=== PATIENT | male | born 1950 | race Caucasian/White ===

== ENCOUNTER 2018-04-09 18:59 | Inpatient (IN) ==
[2018-04-09] MEDS ORDERED: Artificial Tears SOLN 15 ML BOTTLE BOTH EYES PRN (20:51)
[2018-04-09] MEDS ORDERED: Dextrose Gel 15 GM/37.5 ML TUBE PO PRN ×2 (21:03)
[2018-04-09] MEDS ORDERED: D5% in Water 1,000 ML IVC PRN (21:03)
[2018-04-09] MEDS ORDERED: *HR* Dextrose 50 % in Water (Syg) 50 ML SYRINGE IVP PRN (21:03)
--- NOTE | 2018-04-09 21:25 | Internal Med History&Physical ---
<Michael Diaz - Last Filed: 04/09/18 21:02> Date of Encounter: 04/09/18 Time of Encounter: 21:02 Internal Medicine - H&P: HPI Chief complaint: Altered mental status Admitted From: Hospital to Hospital Transfer Plans for Post Hospital Care: [facility] History of present illness: Mr. Keller is a 67 year old male is a transfer from [facility] emergency department presented with altered mental status. During my evaluation patient is intubated, not sedated but not responsive to verbal, painful stimuli. Try to contact patient's daughter whose emergency contact but no recent response. [facility]. As per ambulance records patient glucose was 159, patient was Narcan and with 2 mg, O2 saturation was 96% on nonrebreather mask at 15 L/m. Blood pressure was 84/50 and temperature was 101. He was given 250 mL of normal saline by EMS. At [facility] he was noted to have ratally respirations, was not responsive. He was found to be in severe sepsis secondary to pneumonia. CT shows showed right lower lobe consolidation and patchy airspace opacities in the right upper lobe. CT head was negative for acute intracranial abnormalities. Patient was given 4 L total of normal saline. Patient's initial blood gas was pH 7.46, PCO2 27, PO2 81.After intubation patient's blood gas was pH 7.41, PCO2 29, PO2 80. Patient has not required sedation. His WBC was 16.8. Sodium was 149, serum creatinine 2.27, lactic acid 3.5. Called [facility]. Patient's nurse reports that he has been in the nursing center since the beginning of January. His baseline mental status is Patient groans. He is wholly dependent on others for all of his daily activities. 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 Nurse reports that patient has mentally declined and was followed by neurology which obtain MRI and heavy metal testing. Heavy metal testing was negative. MRI 02/15 showed diffuse white matter disorder throughout the centrum semiovalevalley particular involvement of the medial right temporal lobe. There is concern for PML and patient was tested for HIV which was negative. Past Med Surg Social Fam HX - Past Medical History Medical history: dementia, hypertension, seizures, other (Leukoencephalopathy, lumbar stenosis) Additional medical history: Weight loss unexplained. Dementia. BPH. Periventricular Leukoencephalopathy Psychiatric history: no psych history - Past Surgical History Surgical History: no surgical history Additional surgical history: Hypokalemia, azotemia,vitamin deficiency, multiple falls, weight loss - Social History Smoking Status: Former smoker Smokeless Tobacco Status: No Alcohol use: none Drug use: none - Additional Family History Additional family history: Family history not able to be obtained due to patient being unresponsive. Internal Medicine - H&P: Meds Cyanocobalamin (B-12) [Vitamin B12] 1,000 mcg PO DAILY tablet 01/24/18 [Rx] Meclizine HCl [Verticalm] 25 mg PO DAILY 03/18/18 [History] Tamsulosin HCl [Flomax] 0.4 mg PO DAILY 03/18/18 [History] Docusate [Colace] 100 mg PO BID 04/09/18 [History] HYDROcodone/Acet 5/325 mg [[place] 5-325 mg] 1 tab PO Q8H PRN 04/09/18 [History] Lisinopril-HCTZ 10-12.5 [Prinzide 10-12.5] 1 each PO DAILY 04/09/18 [History] 3 Allergy/AdvReac Type Severity Reaction Status Date / Time No Known Allergies Allergy Verified 01/24/18 21:03 ROS unobtainable: due to mental status All Systems PM: A 10-system review of systems was performed and is negative for pertinent findings except as documented above in the HPI. - Constitutional Vitals: Resp BP Pulse Ox 27 127/70 99 04/09/18 20:53 04/09/18 20:53 04/09/18 20:53 Exam: General: Intubated, unresponsive HEENT: Head atraumatic, normocephalic, PERRL, absent ear discharge or trauma, Moist Mucous Membranes, intubated Neck: nontender to palpation, absent lymphadenopathy, Cardiovascualr: Sinus tachycardia, without murmur, absent gallops or rubs, absent pedal edema, radial pulses 2 out of 4 Lungs: Clear to auscultation on the left lobe, rhonchorous right lower lobe, intubated, breathing over the vent Abdomen: Soft nontender, nondistended positive bowel sounds, absent hepatomegaly Skin: Stage I ulcer, coccyx absent rash, absent open wounds and nodules MSK: absent clubbing, cyanosis, joints without swelling Neuro: Gag reflex present. Pupils round and reactive to light bilaterally. Psych: Intubated, unresponsive - Assessment and plan (1) Acute respiratory failure with hypoxia Current Visit: Yes Status: Acute Assessment and plan: Secondary to pneumonia, bacterial Patient is intubated ABG pH is 7.41, PCO2 29, PO2 80 at [facility] ED Patient is not requiring sedation. Patient is breathing over the ventilator. CT chest showed right upper lobe and right lower lobe opacity medication. We will start patient on DuoNeb's, repeat ABG (2) Sepsis Current Visit: Yes Status: Acute Assessment and plan: Patient was tachycardic, tachypneic, febrile, leukocytosis Neck secondary to pneumonia Lactic acid 3.5 Patient history of total 4 L normal saline. Pressure is 127/70 on arrival to [facility] Blood cultures collected, collect sputum culture On vancomycin, Zosyn Repeat CBC, lactic acid d Qualifiers: Sepsis type: sepsis due to unspecified organism Qualified Code(s): A41.9 - Sepsis, unspecified organism (3) Pneumonia Current Visit: Yes Status: Acute Assessment and plan: Bacterial pneumonia Patient has history of seizures as per records from [facility] unclear if she is on an antiepileptic medication. He was found unresponsive at the nursing facility. There is possibility of aspiration pneumonia. We will obtain sputum culture, urine Legionella and streptococcal antigen. Blood cultures obtained repeat cxr in am Vanc and zosyn Qualifiers: Pneumonia type: due to unspecified organism Laterality: right Lung location: lower lobe of lung Qualified Code(s): J18.1 - Lobar pneumonia, unspecified organism (4) Acute kidney injury Current Visit: Yes Status: Acute Assessment and plan: Secondary to sepsis Prerenal Baseline patient of CKD3 Patient has received 4 L normal saline We will repeat BMP Avoid nephrotoxic agents. (5) History of alcohol use Current Visit: Yes Status: Acute Assessment and plan: According to EMS patient has a history of alcohol abuse however he has been a nursing facility since the beginning of January and all his activities are dependent on others Not suspecting alcohol encephalopathy. (6) History of seizures Current Visit: Yes Status: Acute Assessment and plan: Patient has a history of seizures, unclear type of seizures He is not on any antiepileptics Continue to monitor. (7) History of hypertension Current Visit: Yes Status: Acute Assessment and plan: Currently we will hold patient's home blood pressure medications as he is septic to prevent hypotension. (8) Encephalopathy Current Visit: Yes Status: Acute Assessment and plan: Combination of metabolic encephalopathy in conjunction with baseline leukoencephalopathy Patient's baseline mental status is reported to be patient groans and is totally dependent on others Currently he is unresponsive and not needing sedation Contacted patient's daughter without success. We will obtain an ammonia level UDS - Time Spent With Patient Total time spent is greater than 50% in coordination of care (as documented) at patient's floor/unit and/or counseling patient: <Stormy Guzman - Last Filed: 04/09/18 22:49> Date of Encounter: 04/09/18 Internal Medicine - H&P: HPI History of present illness: Mr. Keller is a 67 year old male All Systems PM: A 10-system review of systems was performed and is negative for pertinent findings except as documented above in the HPI. - Constitutional Vitals: Temp Pulse Resp BP Pulse Ox 100.8 F H 103 27 111/70 100 04/09/18 21:57 04/09/18 21:57 04/09/18 21:57 04/09/18 21:57 04/09/18 21:57 Internal Med - H&P Results - Labs CBC & Chem 7: 04/09/18 21:32 04/09/18 21:32 Labs: Short CBC 04/09/18 Range/Units 21:32 WBC 11.3 H (4.3-11.1) K/mcL Hgb 13.7 (12.9-16.9) g/dL Hct 44.6 (37.5-50.1) % Plt Count 256 (140-400) K/mcL Neutrophils # 9.8 H (1.6-8.9) K/mcL BMP 04/09/18 21:32 Sodium 148 H Potassium 4.0 Chloride 119 H Carbon Dioxide 17 L BUN 84 H Creatinine 2.10 H Glucose 114 H Calcium 9.1 Liver Function 04/09/18 Range/Units 21:32 Total Bilirubin 0.8 (0.3-1.0) mg/dL Direct Bilirubin 0.2 (0.0-0.2) mg/dL AST 29 (13-39) Units/L ALT 15 (7-52) Units/L Alkaline Phosphatase 53 (34-104) Units/L Albumin 3.6 (3.5-5.7) g/dL - ABG Interpretation ABG results: 04/09/18 22:04 ABG pH 7.43 ABG pCO2 26 L ABG pO2 80 L ABG HCO3 17 L ABG Total CO2 18 L ABG O2 Saturation 96 ABG Base Excess -6 L - Time Spent With Patient Total time spent is greater than 50% in coordination of care (as documented) at patient's floor/unit and/or counseling patient: - Attending Attestation Patient seen and examined. Chart reviewed. Case discussed with resident. Agree with assessment and plan. In short patient is a 67-year-old male who was initially taken to [facility] after the patient was found to be febrile and hypotensive at [facility]. Laboratory workup and imaging consistent with high suspicion for pneumonia complicated by severe sepsis. Patient was intubated prior to transfer for airway protection in the setting of altered mental status and being poorly responsive. At baseline patient has been for the last several weeks nonverbal, wheelchair-bound and completely dependent on ADLs. 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 Past MRI showing abnormal white matter disease. Patient was evaluated by neurology, placed on Seroquel with decline in mental state. Has been taken off Seroquel since then. We will treat for severe sepsis secondary to pneumonia. 30 minutes of critical care time was spent in the management of this patient.
[2018-04-09] MEDS: Chlorhexidine Rinse 15 ML MOUTHWASH MM SCH (21:30)
[2018-04-09] MEDS: *HR* Heparin 5,000 UNIT/ML VIAL SQ SCH (21:30)
[2018-04-09] MEDS ORDERED: Naloxone 0.4 MG/ML INJ IVP PRN (21:49)
[2018-04-09 21:59] LABS: Basophils % 0.2 %; Hematocrit 44.6 % (37.5-50.1); Hemoglobin 13.7 g/dL (12.9-16.9); Immature Granulocytes % 0.3 % (0-4); Lymphocytes # 0.9 K/mcL (0.6-4.6); Lymphocytes % 8.2 %; Mean Corpuscular HGB Conc 30.7 g/dL (31.6-35.5); Mean Corpuscular Hemoglobin 29.4 pg (28.0-33.3); Mean Corpuscular Volume 95.7 fL (83.0-100.0); Mean Platelet Volume 9.9 fL (9.4-12.4); Monocytes # 0.5 K/mcL (0.0-1.3); Monocytes % 4.8 %; Neutrophils # 9.8 K/mcL (1.6-8.9); Platelet Count 256 K/mcL (140-400); Red Blood Count 4.66 M/mcL (4.19-5.50); Red Cell Distribution Width 14.2 % (11.5-14.5); Segmented Neutrophils % 86.5 %
[2018-04-09 22:09] LABS: ABG Base Excess -6 mEq/L (-2 to 3); ABG HCO3 17 mEq/L (21-27); ABG Oxygen Saturation 96 % (95-98); ABG PCO2 26 mmHg (35-45); ABG PH 7.43 pH Units (7.32-7.45); ABG PO2 80 mmHg (85-104); ABG TCO2 18 mEq/L (20-26); Blood Gas Modality ASSIST CONTROL; Blood Gas PEEP 5 cm H2O; Blood Gas Respiration Rate 18; Blood Gas VT 450 cc
[2018-04-09 22:09] LABS: Albumin 3.6 g/dL (3.5-5.7); Albumin/Globulin Ratio 1.4 (1.1-2.2); Bilirubin,Direct 0.2 mg/dL (0.0-0.2); Bilirubin,Indirect 0.6 mg/dL (0.0-1.2); Bilirubin,Total 0.8 mg/dL (0.3-1.0); Calcium 9.1 mg/dL (8.6-10.3); Globulin 2.5 g/dL (2.4-3.5); Magnesium 2.3 mg/dL (1.6-2.6); Phosphorous 3.7 mg/dL (2.7-4.5); Total Protein 6.1 g/dL (6.4-8.9)
[2018-04-09 22:18] LABS: VBG Ionized Calcium 1.18 mmol/L (1.15-1.35)
[2018-04-09 22:22] LABS: Platelet Estimate Normal (Normal)
[2018-04-09 22:47] LABS: Amphetamine Screen,Urine Negative ng/mL (Cutoff=1000); Barbiturate Screen,Urine Negative ng/mL (Cutoff=200); Benzodiazepines Screen,Urine Negative ng/mL (Cutoff=200); Cannabinoid Screen,Urine Negative ng/mL (Cutoff = 50); Cocaine Screen,Urine Negative ng/mL (Cutoff= 300); Opiate Screen,Urine Positive ng/mL (Cutoff=300); Phencyclidine Screen,Urine Negative ng/mL (Cutoff=25)
[2018-04-09] MEDS: FentaNYL (PF) 1,000 MCG in 0.9 % Sodium Chloride 80 ML IVC SCH (23:07)
[2018-04-09] MEDS: Artificial Tears SOLN 15 ML BOTTLE BOTH EYES SCH (23:10)
[2018-04-09] MEDS: Piperacillin/Tazobactam 3.375 GM in 0.9 % Sodium Chloride Mini Bag 100 ML IVPB SCH (23:23)
[2018-04-10 01:08] LABS: ABG Base Excess -7 mEq/L (-2 to 3); ABG HCO3 16 mEq/L (21-27); ABG Oxygen Saturation 97 % (95-98); ABG PCO2 24 mmHg (35-45); ABG PH 7.43 pH Units (7.32-7.45); ABG PO2 84 mmHg (85-104); ABG TCO2 17 mEq/L (20-26); Blood Gas Modality ASSIST CONTROL; Blood Gas PEEP 5 cm H2O; Blood Gas Respiration Rate 18; Blood Gas VT 450 cc
[2018-04-10] MEDS ORDERED: Ringers Solution, Lactated 1,000 ML IVC SCH (02:00)
[2018-04-10 02:05] LABS: Hematocrit 38.2 % (37.5-50.1); Mean Corpuscular HGB Conc 30.6 g/dL (31.6-35.5); Mean Corpuscular Hemoglobin 29.7 pg (28.0-33.3); Mean Platelet Volume 9.8 fL (9.4-12.4); Platelet Count 236 K/mcL (140-400); Red Blood Count 3.94 M/mcL (4.19-5.50); Red Cell Distribution Width 14.2 % (11.5-14.5)
[2018-04-10 02:13] LABS: Hemoglobin 11.7 g/dL (12.9-16.9)
[2018-04-10 02:24] LABS: Lymphocytes # 1.6 K/mcL (0.6-4.6); Monocytes # 0.2 K/mcL (0.0-1.3); Neutrophils # 8.8 K/mcL (1.6-8.9)
[2018-04-10 02:25] LABS: Albumin 3.1 g/dL (3.5-5.7); Albumin/Globulin Ratio 1.3 (1.1-2.2); Bilirubin,Total 0.6 mg/dL (0.3-1.0); Calcium 8.7 mg/dL (8.6-10.3); Globulin 2.3 g/dL (2.4-3.5); Platelet Estimate Normal (Normal); Potassium 3.9 mEq/L (3.5-5.1); Total Protein 5.4 g/dL (6.4-8.9)
[2018-04-10] MEDS: Artificial Tears SOLN 15 ML BOTTLE BOTH EYES SCH ×6 (03:01→23:14)
[2018-04-10 04:43] LABS: ABG Base Excess -5 mEq/L (-2 to 3); ABG HCO3 19 mEq/L (21-27); ABG Oxygen Saturation 96 % (95-98); ABG PCO2 31 mmHg (35-45); ABG PO2 79 mmHg (85-104); ABG TCO2 20 mEq/L (20-26); Blood Gas Modality ASSIST CONTROL; Blood Gas PEEP 5 cm H2O; Blood Gas Respiration Rate 18; Blood Gas VT 450 cc
[2018-04-10] MEDS: *HR* Heparin 5,000 UNIT/ML VIAL SQ SCH ×3 (05:09→20:43)
[2018-04-10] MEDS: Famotidine 20 MG/2 ML VIAL IVP SCH ×2 (05:09→17:10)
[2018-04-10] MEDS: FentaNYL (PF) 1,000 MCG in 0.9 % Sodium Chloride 80 ML IVC SCH ×2 (06:08→17:01)
[2018-04-10 07:42] LABS: ABG Base Excess -4 mEq/L (-2 to 3); ABG HCO3 20 mEq/L (21-27); ABG Oxygen Saturation 96 % (95-98); ABG PCO2 32 mmHg (35-45); ABG PO2 77 mmHg (85-104); ABG TCO2 21 mEq/L (20-26); Blood Gas PEEP 5 cm H2O; Blood Gas Respiration Rate 12; Blood Gas VT 550 cc
[2018-04-10] MEDS: Piperacillin/Tazobactam 3.375 GM in 0.9 % Sodium Chloride Mini Bag 100 ML IVPB SCH ×3 (09:04→23:13)
[2018-04-10] MEDS: Chlorhexidine Rinse 15 ML MOUTHWASH MM SCH ×2 (09:10→20:43)
[2018-04-10] MEDS: Docusate Oral Soln 100 MG/10 ML UDC GTUBE SCH ×2 (10:19→20:43)
[2018-04-10 10:21] LABS: Adenovirus Not Detected (Not Detect); Bordetella Pertussis Not Detected (Not Detect); Chlamydophila pneumoniae Not Detected (Not Detect); Coronavirus 229E Not Detected (Not Detect); Coronavirus HKU1 Not Detected (Not Detect); Coronavirus NL63 Not Detected (Not Detect); Coronavirus OC43 Not Detected (Not Detect); Human Metapneumovirus Not Detected (Not Detect); Human Rhinovirus/Enterovirus Not Detected (Not Detect); Influenza A Subtype 2009 H1 Not Detected (Not Detect); Influenza A Untypeable Not Detected (Not Detect); Influenza B Not Detected (Not Detect); Mycoplasma pneumoniae Not Detected (Not Detect); Parainfluenza Virus 1 Not Detected (Not Detect); Parainfluenza Virus 2 Not Detected (Not Detect); Parainfluenza Virus 3 Not Detected (Not Detect); Parainfluenza Virus 4 Not Detected (Not Detect); Respiratory Syncytial Virus Not Detected (Not Detect)
--- NOTE | 2018-04-10 13:38 | Pulmonology Consult Note ---
<Saravanan Reyes S - Last Filed: 04/10/18 15:10> Date of Encounter: 04/10/18 Time of Encounter: 07:00 Assessment and Plan (1) Sepsis Current Visit: Yes Status: Acute Likely 2/2 aspiration pneumonia, per CT chest Patient has a positive MRSA screen Patient was hypotensive on arrival, BP now 112/68 WBC 11.6 Lactate 3.2 > 2.3 Temp of 100.8 initially, now afebrile UA showed many bacteria, ordered urine culture Started patient on Zosyn (day 2) Started patient on Vancomycin (day 2) Qualifiers: Sepsis type: sepsis due to unspecified organism Qualified Code(s): A41.9 - Sepsis, unspecified organism (2) Pneumonia Current Visit: No Status: Acute Likely aspiration pneumonia Evidenced on chest CT Sputum gram stain shows moderate amount of gram (+) cocci, and few gram (+) and (-) rods Negative legionella and strep pneumo antigens Negative respiratory panel Continue Zosyn Continue Vancomycin Qualifiers: Qualified Code(s): J18.9 - Pneumonia, unspecified organism (3) Acute respiratory failure with hypoxia Current Visit: Yes Status: Acute Likely 2/2 aspiration pneumonia Patient intubated due to inability to protect airway Vent settings of FiO2 30%, tidal volume 550, PEEP 5, saturating at 97% Current ABG shows pH 7.4, pCO2 32, pO2 77, HCO3 20 (4) Encephalopathy Current Visit: Yes Status: Acute Patient's appears to be encephalopathic, this may be close to baseline Per notes, patient's baseline is groans Patient has history of leukoencephalopathy, per notes Ammonia level is normal Head CT was negative for any acute process Patient intubated and sedated now He is completely dependent for ADLs (5) Lactic acidosis Current Visit: Yes Status: Acute Patient's initial lactate was 3.2 Improved to 2.2 Patient given fluid resuscitation and empiric antibiotics (6) Chronic kidney disease Current Visit: Yes Status: Acute Patient's creatinine is 2.02, which appears to be around his baseline Will continue to monitor with repeat BMPs Qualifiers: Chronic kidney disease stage: stage 3 (moderate) Qualified Code(s): N18.3 - Chronic kidney disease, stage 3 (moderate) (7) Advance care planning Current Visit: Yes Status: Acute Palliative care has been consulted and is following case Patient's daughter is in the contact info, but we have not had any successful attempts reaching her He resides in [facility] and is completely dependent for ADLs Patient's baseline is groans, per notes (8) DVT prophylaxis Current Visit: Yes Status: Acute Subcutaneous heparin History of Present Illness Consult date: 04/10/18 Requesting physician: Dave Horton Reason for consult: pneumonia Chief complaint: unresponsive History of present illness: 67 year old male with PMHx of leukoencephalopathy, HTN, HLD, and seizures was found to be unresponsive and hypotensive at [facility] in [place]. Patient was transferred to [facility] and intubated because he couldn't protect his airway. Patient was given 4L of normal saline. Blood gas showed pH of 7.41, pCO2 29, PO2 80. Patient had a leukocytosis with white count of 16.8. CT chest was concerning for RLL aspiration pneumonia. CT head was negative for any acute process. Initial lactate of 3.5. He was then transferred to [place] ICU. Patient was given empiric antibiotics and fentanyl for sedation. Per notes, patient's daughter is the POA. Patient has been in [facility] since January. He is completely dependent for all of his ADLs, and his baseline mental status is groans. Possibility of rapid mental decline due to leukoencephalopathy. Patient intubated and sedated in ICU this morning. Past Med Surg Social Fam HX - Past Medical History Medical history: dementia, hypertension, seizures, other (Leukoencephalopathy, lumbar stenosis) Additional medical history: Weight loss unexplained. Dementia. BPH. Periventricular Leukoencephalopathy Psychiatric history: no psych history - Past Surgical History Surgical History: no surgical history Additional surgical history: Hypokalemia, azotemia,vitamin deficiency, multiple falls, weight loss - Social History Smoking Status: Former smoker Smokeless Tobacco Status: No Alcohol use: none Drug use: none Medications and Allergies Cyanocobalamin (B-12) [Vitamin B12] 1,000 mcg PO DAILY tablet 01/24/18 [Rx] Meclizine HCl [Verticalm] 25 mg PO DAILY 03/18/18 [History] Tamsulosin HCl [Flomax] 0.4 mg PO DAILY 03/18/18 [History] Docusate [Colace] 100 mg PO BID 04/09/18 [History] HYDROcodone/Acet 5/325 mg [[place] 5-325 mg] 1 tab PO Q8H PRN 04/09/18 [History] Lisinopril-HCTZ 10-12.5 [Prinzide 10-12.5] 1 each PO DAILY 04/09/18 [History] 3 Allergy/AdvReac Type Severity Reaction Status Date / Time No Known Allergies Allergy Verified 01/24/18 21:03 All Systems: The remainder of the systems were reviewed and are negative Physical Examination Vital Signs: Vital Signs, Last 4 Hours Temp Pulse Resp BP Pulse Ox 04/10/18 13:22 12 97 04/10/18 12:00 99.1 F 84 12 107/70 100 04/10/18 11:05 16 91/66 97 04/10/18 11:00 95 13 91/66 99 04/10/18 10:00 96 16 106/71 97 General appearance: other (intubated, sedated) Auscultation: right: rales, bilateral: diminished breath sounds Cardiovascular: regular rate and rhythm Gastrointestinal: normoactive bowel sounds, soft, non-distended Integumentary: normal Extremities: no cyanosis, no edema, pink and warm, pulses normal Musculoskeletal: no deformities unable to assess due to mental status Ventilator Settings Ventilator Settings: Ventilator Settings, Last 8 Hours Ventilator Tidal Volume 550 Setting Ventilator Tidal Volume 550 Setting Ventilator Tidal Volume 550 Setting Ventilator Tidal Volume 550 Setting Ventilator Tidal Volume 550 Setting Ventilator Tidal Volume 550 Setting Ventilator Tidal Volume 550 Setting Ventilator Tidal Volume 550 Setting Ventilator Tidal Volume 550 Setting Ventilator Tidal Volume 550 Setting Ventilator Tidal Volume 550 Setting Ventilator Tidal Volume 450 Setting Ventilator Respiratory Rate 12 Setting Ventilator Respiratory Rate 12 Setting Ventilator Respiratory Rate 12 Setting Ventilator Respiratory Rate 12 Setting Ventilator Respiratory Rate 12 Setting Ventilator Respiratory Rate 12 Setting Ventilator Respiratory Rate 12 Setting Ventilator Respiratory Rate 12 Setting Ventilator Respiratory Rate 12 Setting Ventilator Respiratory Rate 12 Setting Ventilator Respiratory Rate 12 Setting Ventilator Respiratory Rate 18 Setting Actual Respiratory Rate 12 Actual Respiratory Rate 12 Actual Respiratory Rate 16 Actual Respiratory Rate 13 Actual Respiratory Rate 16 Actual Respiratory Rate 16 Actual Respiratory Rate 18 Actual Respiratory Rate 17 Actual Respiratory Rate 17 Actual Respiratory Rate 16 Actual Respiratory Rate 20 Positive End Expiratory 5 Pressure Positive End Expiratory 5 Pressure Positive End Expiratory 5 Pressure Positive End Expiratory 5 Pressure Positive End Expiratory 5 Pressure Positive End Expiratory 5 Pressure Positive End Expiratory 5 Pressure Positive End Expiratory 5 Pressure Positive End Expiratory 5 Pressure Positive End Expiratory 5 Pressure Positive End Expiratory 5 Pressure Positive End Expiratory 5 Pressure Peak Inspiratory Airway 12 Pressure Peak Inspiratory Airway 19 Pressure Peak Inspiratory Airway 21 Pressure Peak Inspiratory Airway 20 Pressure Peak Inspiratory Airway 12 Pressure Peak Inspiratory Airway 15 Pressure Peak Inspiratory Airway 14 Pressure Peak Inspiratory Airway 16 Pressure Peak Inspiratory Airway 16 Pressure Peak Inspiratory Airway 22 Pressure Peak Inspiratory Airway 22 Pressure Results - Laboratory Findings CBC and BMP: 04/10/18 01:56 04/10/18 01:56 ABG ABG pH 7.40 pH Units (7.32-7.45) 04/10/18 07:35 ABG pCO2 32 mmHg (35-45) L 04/10/18 07:35 ABG pO2 77 mmHg (85-104) L 04/10/18 07:35 ABG O2 Saturation 96 % (95-98) 04/10/18 07:35 Abnormal lab findings: Abnormal lab results WBC 11.6 K/mcL (4.3-11.1) H 04/10/18 01:56 RBC 3.94 M/mcL (4.19-5.50) L 04/10/18 01:56 Hgb 11.7 g/dL (12.9-16.9) L D 04/10/18 01:56 MCHC 30.6 g/dL (31.6-35.5) L 04/10/18 01:56 Band Neutrophils % 20.0 % (0-4) H 04/10/18 01:56 Metamyelocytes % 6.0 % (0) H 04/10/18 01:56 Myelocytes % 2.0 % (0) H 04/10/18 01:56 ABG pCO2 32 mmHg (35-45) L 04/10/18 07:35 ABG pO2 77 mmHg (85-104) L 04/10/18 07:35 ABG HCO3 20 mEq/L (21-27) L 04/10/18 07:35 ABG Base Excess -4 mEq/L (-2 to 3) L 04/10/18 07:35 Sodium 150 mEq/L (136-145) H 04/10/18 01:56 Chloride 121 mEq/L (98-107) H 04/10/18 01:56 Carbon Dioxide 18 mEq/L (23-29) L 04/10/18 01:56 BUN 80 mg/dL (8-23) H 04/10/18 01:56 Creatinine 2.02 mg/dL (0.70-1.30) H 04/10/18 01:56 Est GFR ( Amer) 40 (> 60) L 04/10/18 01:56 Est GFR (Non-Af Amer) 33 (> 60) L 04/10/18 01:56 BUN/Creatinine Ratio 40 (6-26) H 04/10/18 01:56 Glucose 106 mg/dL (70-105) H 04/10/18 01:56 Calculated Osmolality 334 (280-300) H 04/10/18 01:56 Lactic Acid 2.3 mmol/L (0.5-2.2) H 04/10/18 09:33 Serum Total Protein 5.4 g/dL (6.4-8.9) L 04/10/18 01:56 Albumin 3.1 g/dL (3.5-5.7) L 04/10/18 01:56 Globulin 2.3 g/dL (2.4-3.5) L 04/10/18 01:56 Nasal Screen MRSA (PCR) Positive (Negative) A 04/10/18 10:00 Urine Opiates Screen Positive ng/mL (Qjmglk=132) H 04/09/18 22:12 - Microbiology Findings Microbiology Findings: Microbiology, Last 48 Hours 04/10/18 10:00 Legionella Antigen - Final Urine,Catheterized Streptococcus pneumoniae Antigen (M - Final 04/09/18 21:30 Sputum Culture - Preliminary Trachea - Clinical Findings Intake & Output: Intake & Output 04/09/18 04/10/18 04/10/18 23:59 07:59 15:59 Intake Total 0 / 0 200 / 200 Output Total 450 / 450 200 / 200 550 / 550 Balance -450 / -450 0 / 0 -550 / -550 Weight 65 kg Consult Discharge Plan - Plan Referrals: Kurtis Rivas MD [Primary Care Provider] - <Dave Horton M - Last Filed: 04/10/18 15:30> Date of Encounter: 04/10/18 All Systems: The remainder of the systems were reviewed and are negative Physical Examination Vital Signs: Vital Signs, Last 4 Hours Temp Pulse Resp BP Pulse Ox 04/10/18 14:00 92 16 115/64 99 04/10/18 13:22 12 97 04/10/18 13:00 86 15 109/78 99 04/10/18 12:00 99.1 F 84 12 107/70 100 Ventilator Settings Ventilator Settings: Ventilator Settings, Last 8 Hours Ventilator Tidal Volume 550 Setting Ventilator Tidal Volume 550 Setting Ventilator Tidal Volume 550 Setting Ventilator Tidal Volume 550 Setting Ventilator Tidal Volume 550 Setting Ventilator Tidal Volume 550 Setting Ventilator Tidal Volume 550 Setting Ventilator Tidal Volume 550 Setting Ventilator Tidal Volume 550 Setting Ventilator Tidal Volume 550 Setting Ventilator Tidal Volume 550 Setting Ventilator Respiratory Rate 12 Setting Ventilator Respiratory Rate 12 Setting Ventilator Respiratory Rate 12 Setting Ventilator Respiratory Rate 12 Setting Ventilator Respiratory Rate 12 Setting Ventilator Respiratory Rate 12 Setting Ventilator Respiratory Rate 12 Setting Ventilator Respiratory Rate 12 Setting Ventilator Respiratory Rate 12 Setting Ventilator Respiratory Rate 12 Setting Ventilator Respiratory Rate 12 Setting Actual Respiratory Rate 16 Actual Respiratory Rate 12 Actual Respiratory Rate 15 Actual Respiratory Rate 12 Actual Respiratory Rate 16 Actual Respiratory Rate 13 Actual Respiratory Rate 16 Actual Respiratory Rate 16 Actual Respiratory Rate 18 Actual Respiratory Rate 17 Positive End Expiratory 5 Pressure Positive End Expiratory 5 Pressure Positive End Expiratory 5 Pressure Positive End Expiratory 5 Pressure Positive End Expiratory 5 Pressure Positive End Expiratory 5 Pressure Positive End Expiratory 5 Pressure Positive End Expiratory 5 Pressure Positive End Expiratory 5 Pressure Positive End Expiratory 5 Pressure Positive End Expiratory 5 Pressure Peak Inspiratory Airway 15 Pressure Peak Inspiratory Airway 12 Pressure Peak Inspiratory Airway 14 Pressure Peak Inspiratory Airway 19 Pressure Peak Inspiratory Airway 21 Pressure Peak Inspiratory Airway 20 Pressure Peak Inspiratory Airway 12 Pressure Peak Inspiratory Airway 15 Pressure Peak Inspiratory Airway 14 Pressure Peak Inspiratory Airway 16 Pressure Results - Laboratory Findings CBC and BMP: 04/10/18 01:56 04/10/18 01:56 ABG ABG pH 7.40 pH Units (7.32-7.45) 04/10/18 07:35 ABG pCO2 32 mmHg (35-45) L 04/10/18 07:35 ABG pO2 77 mmHg (85-104) L 04/10/18 07:35 ABG O2 Saturation 96 % (95-98) 04/10/18 07:35 Abnormal lab findings: Abnormal lab results WBC 11.6 K/mcL (4.3-11.1) H 04/10/18 01:56 RBC 3.94 M/mcL (4.19-5.50) L 04/10/18 01:56 Hgb 11.7 g/dL (12.9-16.9) L D 04/10/18 01:56 MCHC 30.6 g/dL (31.6-35.5) L 04/10/18 01:56 Band Neutrophils % 20.0 % (0-4) H 04/10/18 01:56 Metamyelocytes % 6.0 % (0) H 04/10/18 01:56 Myelocytes % 2.0 % (0) H 04/10/18 01:56 ABG pCO2 32 mmHg (35-45) L 04/10/18 07:35 ABG pO2 77 mmHg (85-104) L 04/10/18 07:35 ABG HCO3 20 mEq/L (21-27) L 04/10/18 07:35 ABG Base Excess -4 mEq/L (-2 to 3) L 04/10/18 07:35 Sodium 150 mEq/L (136-145) H 04/10/18 01:56 Chloride 121 mEq/L (98-107) H 04/10/18 01:56 Carbon Dioxide 18 mEq/L (23-29) L 04/10/18 01:56 BUN 80 mg/dL (8-23) H 04/10/18 01:56 Creatinine 2.02 mg/dL (0.70-1.30) H 04/10/18 01:56 Est GFR ( Amer) 40 (> 60) L 04/10/18 01:56 Est GFR (Non-Af Amer) 33 (> 60) L 04/10/18 01:56 BUN/Creatinine Ratio 40 (6-26) H 04/10/18 01:56 Glucose 106 mg/dL (70-105) H 04/10/18 01:56 Calculated Osmolality 334 (280-300) H 04/10/18 01:56 Lactic Acid 2.3 mmol/L (0.5-2.2) H 04/10/18 09:33 Serum Total Protein 5.4 g/dL (6.4-8.9) L 04/10/18 01:56 Albumin 3.1 g/dL (3.5-5.7) L 04/10/18 01:56 Globulin 2.3 g/dL (2.4-3.5) L 04/10/18 01:56 Nasal Screen MRSA (PCR) Positive (Negative) A 04/10/18 10:00 Urine Opiates Screen Positive ng/mL (Jytlqk=817) H 04/09/18 22:12 - Microbiology Findings Microbiology Findings: Microbiology, Last 48 Hours 04/10/18 10:00 Legionella Antigen - Final Urine,Catheterized Streptococcus pneumoniae Antigen (M - Final 04/09/18 21:30 Sputum Culture - Preliminary Trachea - Clinical Findings Intake & Output: Intake & Output 04/09/18 04/10/18 04/10/18 23:59 07:59 15:59 Intake Total 0 / 0 200 / 200 350 / 350 Output Total 450 / 450 200 / 200 550 / 550 Balance -450 / -450 0 / 0 -200 / -200 Weight 65 kg - Attending Attestation I examined this patient and my medical decision-making was reviewed with the Resident Physician. I agree with the documented findings, disposition and treatment plan as described except to the extent set forth below. Patient seen and examined. Labs, radiology, chart personally reviewed. 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 Not able to get a reliable history. We might consider images. Pulmonary: Acceptable oxygenation and ventilation. I suspect patient has aspiration pneumonia and he is being treated with broad-spectrum antibiotics and he still have significant amount of secretion that would be unsafe for extubation. Checking his ventilator there was significant vent patient dyssynchrony and adjusted tidal volume and respiratory rate which helped quite a bit of getting rid of intrinsic PEEP as well as patient comfort. Follow-up ABG has ordered and if needed further adjustment will be made. I am concerned this patient may end up with tracheostomy and for that reason palliative care would be very helpful to discuss goals with the surrogate. Cardiovascular: There is no evidence of cardiogenic shock. GI: Nutrition per dietary and GI prophylaxis per routine. I suspect patient will need some sort of feeding assistance. Heme: DVT prophylaxis per routine ID: Continue antibiotics and plan to de-escalation Renal; urine out put and renal funtion reviewed Endorcine: blood glucose is monitored Lines: all lines checked and no evidence of infections Skin: skin care to prevent pressure ulcers per nursing routine care Overall prognosis is poor. I spent 35 min of Critical Care time with this patient. It involved decision making of high complexity to assess, manipulate, and support vital organ system failure and/or to prevent further life threatening deterioration of the patient' s condition. The time involved in the performance of separately reportable procedures was not counted toward critical care time.
--- NOTE | 2018-04-10 14:31 | Palliative - Consult Note ---
Date of Encounter: 04/10/18 Time of Encounter: 14:30 - Assessment and Plan (1) Generalized pain Current Visit: Yes Status: Acute Assessment and plan: Remains on Fentanyl drip per ICU protocol. Monitor. Appears comfortable, does bite down on ET tube frequently. (2) Goals of care, counseling/discussion Current Visit: Yes Status: Acute Assessment and plan: Have reviewed chart, including all ED visits this summer to try and find other contact information. Several attempts to reach daughter Yvonne to no avail. I cannot find any other number listed for her in our system. [facility] does not have any other number. By chart review, over the summer, a son in documented as well seeing him in the hospital, but does not state his name or other contact information. I did reach out to DARIEL Armendariz that worked with patient at [facility] to see if she would have other helpful information, and also division chief that handled the APS referral. Awaiting return calls. Will continue to follow. (3) Encephalopathy Current Visit: Yes Status: Acute (4) Pneumonia Current Visit: No Status: Acute Assessment and plan: Continues with vent support/IV atb/ aerosols, and ICU care. Qualifiers: Qualified Code(s): J18.9 - Pneumonia, unspecified organism Palliative-CN HPI - Data of Consult Consult date: 04/10/18 Requesting Physician: Alicia Griffith MD Primary Care Provider: Kurtis Rivas MD - Consult Narrative History of present illness: Mr. Keller is a 67 year old male who was admitted after found to have decreased mental status, hypotension at the [facility]. He was placed their this summer, after multiple falls/unresponsive episodes that he would be seen in ED for and was in deplorable home situation. APS was involved and he was placed at [facility]. 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 In chart review, patient had made remarks that he may be HIV + r/t needlestick from his , however, HIV testing was negative. He was intubated to protect airway and admitted to intensive care unit. He is currently being treated for aspiration pneumonia and suspected rt sided infiltrate. Staff has been unable to reach family to clarify code status. Palliative care was consult to assist with contacting family goals of care discussion. Appears his neurological condition has progressively worsened over the last couple of months. CC: Alicia Griffith MD - Time Spent with Patient Time: Total time spent is greater than 50% in coordination of care (as documented) at patient's floor/unit and/or counseling patient: 25 - 35 minutes Past Med Surg Social Fam HX - Past Medical History Medical history: dementia, hypertension, seizures, other (Leukoencephalopathy, lumbar stenosis) Additional medical history: Weight loss unexplained. Dementia. BPH. Periventricular Leukoencephalopathy Psychiatric history: no psych history - Past Surgical History Surgical History: no surgical history Additional surgical history: Hypokalemia, azotemia,vitamin deficiency, multiple falls, weight loss - Social History Smoking Status: Former smoker Smokeless Tobacco Status: No Alcohol use: none Drug use: none Medications and Allergies Cyanocobalamin (B-12) [Vitamin B12] 1,000 mcg PO DAILY tablet 01/24/18 [Rx] Meclizine HCl [Verticalm] 25 mg PO DAILY 03/18/18 [History] Tamsulosin HCl [Flomax] 0.4 mg PO DAILY 03/18/18 [History] Docusate [Colace] 100 mg PO BID 04/09/18 [History] HYDROcodone/Acet 5/325 mg [[place] 5-325 mg] 1 tab PO Q8H PRN 04/09/18 [History] Lisinopril-HCTZ 10-12.5 [Prinzide 10-12.5] 1 each PO DAILY 04/09/18 [History] 3 Allergy/AdvReac Type Severity Reaction Status Date / Time No Known Allergies Allergy Verified 01/24/18 21:03 ROS unobtainable: due to endotracheal tube Palliative Care-Exam - Constitutional Vitals: Temp Pulse Resp BP Pulse Ox 99.1 F 84 12 107/70 97 04/10/18 12:00 04/10/18 12:00 04/10/18 13:22 04/10/18 12:00 04/10/18 13:22 General appearance: Present: no acute distress - Head Head Exam: Present: normal inspection, normocephalic - Eye Eye exam: Present: normal appearance, PERRL - Respiratory Respiratory exam: Present: decreased breath sounds, CTAB Additional comments: Remains on ventilator with 30% FIo2/ 5 PEEP - Cardiovascular Cardiovascular exam: Present: +S1, +S2 - GI/Abdominal Exam GI/Abdominal exam: Present: diminished bowel sounds, distended, soft - Extremities Exam Extremities exam: Present: normal capillary refill, normal inspection Additional comments: Foot drop noted - Neurological Exam Additional comments: Patient does not respond to verbal or tactile stimulation. Has occasional jerking movements - Skin Skin exam: Present: dry, warm Internal Medicine - CN: Reslt - Labs CBC & Chem 7: 04/10/18 01:56 04/10/18 01:56 Labs: Short CBC 04/09/18 04/10/18 Range/Units 21:32 01:56 WBC 11.3 H 11.6 H (4.3-11.1) K/mcL Hgb 13.7 11.7 L D (12.9-16.9) g/dL Hct 44.6 38.2 (37.5-50.1) % Plt Count 256 236 (140-400) K/mcL Neutrophils # 9.8 H 8.8 (1.6-8.9) K/mcL BMP 04/09/18 04/10/18 21:32 01:56 Sodium 148 H 150 H Potassium 4.0 3.9 Chloride 119 H 121 H Carbon Dioxide 17 L 18 L BUN 84 H 80 H Creatinine 2.10 H 2.02 H Glucose 114 H 106 H Calcium 9.1 8.7 Liver Function 04/09/18 04/10/18 Range/Units 21:32 01:56 Total Bilirubin 0.8 0.6 (0.3-1.0) mg/dL Direct Bilirubin 0.2 (0.0-0.2) mg/dL AST 29 25 (13-39) Units/L ALT 15 14 (7-52) Units/L Alkaline Phosphatase 53 44 (34-104) Units/L Albumin 3.6 3.1 L (3.5-5.7) g/dL - ABG Interpretation ABG results: ABG ABG pH 7.40 pH Units (7.32-7.45) 04/10/18 07:35 ABG pCO2 32 mmHg (35-45) L 04/10/18 07:35 ABG pO2 77 mmHg (85-104) L 04/10/18 07:35 ABG O2 Saturation 96 % (95-98) 04/10/18 07:35 - Impressions Impressions KUB X-Ray 04/09/18 20:52 IMPRESSION: The enteric tube is in good position in the stomach. D/ / Ryland Dorado MD / Ryland Dorado MD Interpreting Provider: Ryland Dorado MD Chest X-Ray 04/10/18 04:00 IMPRESSION: 1. Increasing airspace disease on the right, probably pneumonia. 2. The endotracheal tube tip is 4 cm above the mark. 3. The enteric tube should be advanced 7 cm. D/ / Ryland Dorado MD / Ryland Dorado MD Interpreting Provider: Ryland Dorado MD Consult Discharge Plan - Plan Referrals: Kurtis Rivas MD [Primary Care Provider] - Palliative Quality Palliative Quality: Screen for Code Status: NA (No family contact), Screen for Goals of Care: NA, Screen for Pain: NA, If Pain Regimen Started, Initiate Bowel Regimen: NA, Screen for Nausea/Vomitting: NA Code Status: 04/09/18 21:01 CODE [Resuscitation Status: Active] [RES] Routine Comment: Resuscitation Status: Full Code
[2018-04-10] MEDS ORDERED: Aminoglycoside Consult 1 EACH MC ONE (17:50)
[2018-04-11] MEDS: FentaNYL (PF) 1,000 MCG in 0.9 % Sodium Chloride 80 ML IVC SCH (00:31)
[2018-04-11 04:12] LABS: Basophils % 0.2 %; Eosinophils # 0.1 K/mcL (0.0-0.6); Eosinophils % 0.7 %; Hematocrit 33.4 % (37.5-50.1); Hemoglobin 10.2 g/dL (12.9-16.9); Immature Granulocytes % 0.5 % (0-4); Lymphocytes # 0.7 K/mcL (0.6-4.6); Mean Corpuscular HGB Conc 30.5 g/dL (31.6-35.5); Mean Corpuscular Hemoglobin 28.9 pg (28.0-33.3); Mean Corpuscular Volume 94.6 fL (83.0-100.0); Mean Platelet Volume 9.9 fL (9.4-12.4); Monocytes # 0.4 K/mcL (0.0-1.3); Monocytes % 3.6 %; Neutrophils # 9.1 K/mcL (1.6-8.9); Platelet Count 234 K/mcL (140-400); Red Blood Count 3.53 M/mcL (4.19-5.50); Red Cell Distribution Width 14.1 % (11.5-14.5)
[2018-04-11] MEDS: Artificial Tears SOLN 15 ML BOTTLE BOTH EYES SCH ×5 (04:18→19:59)
[2018-04-11 04:31] LABS: Calcium 8.5 mg/dL (8.6-10.3); Potassium 3.6 mEq/L (3.5-5.1)
[2018-04-11 04:32] LABS: Magnesium 2.2 mg/dL (1.6-2.6); Phosphorous 2.1 mg/dL (2.7-4.5)
[2018-04-11] MEDS: *HR* Heparin 5,000 UNIT/ML VIAL SQ SCH ×2 (04:56→14:56)
[2018-04-11] MEDS: Famotidine 20 MG/2 ML VIAL IVP SCH ×2 (04:56→18:12)
[2018-04-11 04:59] LABS: ABG Base Excess -2 mEq/L (-2 to 3); ABG HCO3 22 mEq/L (21-27); ABG Oxygen Saturation 97 % (95-98); ABG PCO2 33 mmHg (35-45); ABG PH 7.43 pH Units (7.32-7.45); ABG PO2 83 mmHg (85-104); ABG TCO2 23 mEq/L (20-26); Blood Gas PEEP 5 cm H2O; Blood Gas Respiration Rate 12; Blood Gas VT 550 cc
[2018-04-11] MEDS: Piperacillin/Tazobactam 3.375 GM in 0.9 % Sodium Chloride Mini Bag 100 ML IVPB SCH ×2 (08:16→16:24)
[2018-04-11] MEDS: Chlorhexidine Rinse 15 ML MOUTHWASH MM SCH ×2 (08:16→19:58)
[2018-04-11] MEDS: Docusate Oral Soln 100 MG/10 ML UDC GTUBE SCH ×2 (08:16→19:58)
--- NOTE | 2018-04-11 09:16 | Palliative Progress Note ---
Date of Encounter: 04/11/18 Time of Encounter: 09:45 - Assessment and plan (1) Generalized pain Current Visit: Yes Status: Acute Assessment and plan: Pain medication was turned off this am - pt currently in CPAP trial. Monitor. Appear comfortable at this time. (2) Goals of care, counseling/discussion Current Visit: Yes Status: Acute Assessment and plan: Patient's daughter Yvonne Lebron did return call this am. She states that the phone number we have is correct, she is unsure why she has not gotten messages. She works through [employer] ( [phone]). Updated Yvonne on pt admission and status. Yvonne states that she is aware of fathers neurological condition, and she has been working with [place] [employer] to get him further assistance. She had began the guardianship process , but has not been to prover to finalize this. Yvonne states she had one brother , Eriberto. Yvonne could not give me his #, but states he works at [employer], and they are on good terms. He was involved with his fathers care and getting him placed at [facility]. Yvonne states that pt worked at [email or web address] dept up until 2 years ago. Discussed that team needs to meet with Yvonne and her brother to discuss goals of care and make some decisions for his health, as appears pt neurologically is declining, and he has not been able to participate with any care thus far. She verbalized understanding. Yvonne stated she would contact her brother atiya after work, and plan on meeting tomorrow at 1430. D/W ICU team. (3) Encephalopathy Current Visit: Yes Status: Acute Assessment and plan: No improvement, remains responsive only to painful stimuli. (4) Pneumonia Current Visit: No Status: Inactive - Time Spent With Patient Total time spent is greater than 50% in coordination of care (as documented) at patient's floor/unit and/or counseling patient: - Subjective Interval history: Patient tolerating CPAP this am. No response to verbal stimuli, does not follow commands. On no sedation or pain medication at this time. No family has yet arrived or called. Daughter Yvonne Lebron works for [employer]. They are supposed to get in touch with her and have her call this am, but have not heard from her as of yet. - Constitutional Vitals: Abnormal lab results RBC 3.53 M/mcL (4.19-5.50) L 04/11/18 03:52 Hgb 10.2 g/dL (12.9-16.9) L D 04/11/18 03:52 Hct 33.4 % (37.5-50.1) L 04/11/18 03:52 MCHC 30.5 g/dL (31.6-35.5) L 04/11/18 03:52 Band Neutrophils % 20.0 % (0-4) H 04/10/18 01:56 Metamyelocytes % 6.0 % (0) H 04/10/18 01:56 Myelocytes % 2.0 % (0) H 04/10/18 01:56 Neutrophils # 9.1 K/mcL (1.6-8.9) H 04/11/18 03:52 ABG pCO2 33 mmHg (35-45) L 04/11/18 04:56 ABG pO2 83 mmHg (85-104) L 04/11/18 04:56 Sodium 151 mEq/L (136-145) H 04/11/18 03:52 Chloride 122 mEq/L (98-107) H 04/11/18 03:52 Carbon Dioxide 21 mEq/L (23-29) L 04/11/18 03:52 BUN 54 mg/dL (8-23) H 04/11/18 03:52 Creatinine 1.54 mg/dL (0.70-1.30) H 04/11/18 03:52 Est GFR ( Amer) 55 (> 60) L 04/11/18 03:52 Est GFR (Non-Af Amer) 45 (> 60) L 04/11/18 03:52 BUN/Creatinine Ratio 35 (6-26) H 04/11/18 03:52 Glucose 155 mg/dL (70-105) H 04/11/18 03:52 POC Glucose 109 mg/dL (70-99) H 04/11/18 07:41 Calculated Osmolality 330 (280-300) H 04/11/18 03:52 Lactic Acid 2.3 mmol/L (0.5-2.2) H 04/10/18 09:33 Calcium 8.5 mg/dL (8.6-10.3) L 04/11/18 03:52 Phosphorus 2.1 mg/dL (2.7-4.5) L 04/11/18 03:52 Serum Total Protein 5.4 g/dL (6.4-8.9) L 04/10/18 01:56 Albumin 3.1 g/dL (3.5-5.7) L 04/10/18 01:56 Globulin 2.3 g/dL (2.4-3.5) L 04/10/18 01:56 Nasal Screen MRSA (PCR) Positive (Negative) A 04/10/18 10:00 Urine Opiates Screen Positive ng/mL (Rjmzji=553) H 04/09/18 22:12 General appearance: Present: no acute distress - Respiratory Respiratory exam: Present: CTAB Additional comments: Remains on vent with 30% FIo2 PEEP 5. + creamy colored secretions with suctioning. - Cardiovascular Cardiovascular exam: Present: +S1, +S2 - GI/Abdominal GI/Abdominal exam: Present: normal bowel sounds, soft - Extremities Exam Extremities exam: Present: normal capillary refill, normal inspection - Neurological Exam Neurological exam: Present: altered Additional comments: Will not follow commands, moves head/arms some with painful stimuli. - Skin Skin exam: Present: dry, pallor, warm Palliative Quality Palliative Quality: Screen for Code Status: NA (No family contact), Screen for Goals of Care: NA, Screen for Pain: NA, If Pain Regimen Started, Initiate Bowel Regimen: NA, Screen for Nausea/Vomitting: NA Code Status: 04/09/18 21:01 CODE [Resuscitation Status: Active] [RES] Routine Comment: Resuscitation Status: Full Code - Labs CBC & Chem 7: 04/11/18 03:52 04/11/18 03:52 Labs: Laboratory Results - last 24 hr 04/10/18 04/10/18 04/10/18 09:10 09:33 10:00 WBC RBC Hgb Hct MCV MCH MCHC RDW Plt Count MPV Immature Gran % Seg Neutrophils % Lymphocytes % Monocytes % Eosinophils % Basophils % Neutrophils # Lymphocytes # Monocytes # Eosinophils # Basophils # Sample Site ABG pH ABG pCO2 ABG pO2 ABG HCO3 ABG Total CO2 ABG O2 Saturation ABG Base Excess Respiration Rate O2 Delivery Device Inspired O2 Tidal Volume PEEP Sodium Potassium Chloride Carbon Dioxide BUN Creatinine Est GFR ( Amer) Est GFR (Non-Af Amer) BUN/Creatinine Ratio Glucose POC Glucose Calculated Osmolality Lactic Acid 2.3 H Calcium Phosphorus Magnesium Nasal Screen MRSA (PCR) Positive A Chlamy pneumoniae PCR Not Detected Adenovirus (PCR) Not Detected B. pertussis DNA (PCR) Not Detected B.parapertussis DNA PCR Not Detected Coronavirus OC43 (PCR) Not Detected Coronavirus HKU1 (PCR) Not Detected Coronavirus 229E (PCR) Not Detected Coronavirus NL63 (PCR) Not Detected Human Metapneumovir PCR Not Detected Influenza A (H1) PCR Not Detected Influ A (H1N1/09) PCR Not Detected Influenza A (H3) PCR Not Detected Influenza A Untype (PCR) Not Detected Influenza Type B (PCR) Not Detected M.pneumoniae DNA (PCR) Not Detected Parainfluenza 1 (PCR) Not Detected Parainfluenza 2 (PCR) Not Detected Parainfluenza 3 (PCR) Not Detected Parainfluenza 4 (PCR) Not Detected RSV (PCR) Not Detected Entero/Rhino (PCR) Not Detected 04/10/18 04/10/18 04/10/18 10:22 11:47 16:08 WBC RBC Hgb Hct MCV MCH MCHC RDW Plt Count MPV Immature Gran % Seg Neutrophils % Lymphocytes % Monocytes % Eosinophils % Basophils % Neutrophils # Lymphocytes # Monocytes # Eosinophils # Basophils # Sample Site ABG pH ABG pCO2 ABG pO2 ABG HCO3 ABG Total CO2 ABG O2 Saturation ABG Base Excess Respiration Rate O2 Delivery Device Inspired O2 Tidal Volume PEEP Sodium Potassium Chloride Carbon Dioxide BUN Creatinine Est GFR ( Amer) Est GFR (Non-Af Amer) BUN/Creatinine Ratio Glucose POC Glucose 78 88 92 Calculated Osmolality Lactic Acid Calcium Phosphorus Magnesium Nasal Screen MRSA (PCR) Chlamy pneumoniae PCR Adenovirus (PCR) B. pertussis DNA (PCR) B.parapertussis DNA PCR Coronavirus OC43 (PCR) Coronavirus HKU1 (PCR) Coronavirus 229E (PCR) Coronavirus NL63 (PCR) Human Metapneumovir PCR Influenza A (H1) PCR Influ A (H1N1/09) PCR Influenza A (H3) PCR Influenza A Untype (PCR) Influenza Type B (PCR) M.pneumoniae DNA (PCR) Parainfluenza 1 (PCR) Parainfluenza 2 (PCR) Parainfluenza 3 (PCR) Parainfluenza 4 (PCR) RSV (PCR) Entero/Rhino (PCR) 04/10/18 04/10/18 04/10/18 19:40 19:51 23:02 WBC RBC Hgb Hct MCV MCH MCHC RDW Plt Count MPV Immature Gran % Seg Neutrophils % Lymphocytes % Monocytes % Eosinophils % Basophils % Neutrophils # Lymphocytes # Monocytes # Eosinophils # Basophils # Sample Site ABG pH ABG pCO2 ABG pO2 ABG HCO3 ABG Total CO2 ABG O2 Saturation ABG Base Excess Respiration Rate O2 Delivery Device Inspired O2 Tidal Volume PEEP Sodium Potassium Chloride Carbon Dioxide BUN Creatinine Est GFR ( Amer) Est GFR (Non-Af Amer) BUN/Creatinine Ratio Glucose POC Glucose 111 H 92 125 H Calculated Osmolality Lactic Acid Calcium Phosphorus Magnesium Nasal Screen MRSA (PCR) Chlamy pneumoniae PCR Adenovirus (PCR) B. pertussis DNA (PCR) B.parapertussis DNA PCR Coronavirus OC43 (PCR) Coronavirus HKU1 (PCR) Coronavirus 229E (PCR) Coronavirus NL63 (PCR) Human Metapneumovir PCR Influenza A (H1) PCR Influ A (H1N1/09) PCR Influenza A (H3) PCR Influenza A Untype (PCR) Influenza Type B (PCR) M.pneumoniae DNA (PCR) Parainfluenza 1 (PCR) Parainfluenza 2 (PCR) Parainfluenza 3 (PCR) Parainfluenza 4 (PCR) RSV (PCR) Entero/Rhino (PCR) 04/11/18 04/11/18 04/11/18 03:52 03:52 03:52 WBC 10.4 RBC 3.53 L Hgb 10.2 L D Hct 33.4 L MCV 94.6 MCH 28.9 MCHC 30.5 L RDW 14.1 Plt Count 234 MPV 9.9 Immature Gran % 0.5 Seg Neutrophils % 88.0 Lymphocytes % 7.0 Monocytes % 3.6 Eosinophils % 0.7 Basophils % 0.2 Neutrophils # 9.1 H Lymphocytes # 0.7 Monocytes # 0.4 Eosinophils # 0.1 Basophils # 0.0 Sample Site ABG pH ABG pCO2 ABG pO2 ABG HCO3 ABG Total CO2 ABG O2 Saturation ABG Base Excess Respiration Rate O2 Delivery Device Inspired O2 Tidal Volume PEEP Sodium 151 H Potassium 3.6 Chloride 122 H Carbon Dioxide 21 L BUN 54 H Creatinine 1.54 H Est GFR ( Amer) 55 L Est GFR (Non-Af Amer) 45 L BUN/Creatinine Ratio 35 H Glucose 155 H POC Glucose Calculated Osmolality 330 H Lactic Acid Calcium 8.5 L Phosphorus 2.1 L Magnesium 2.2 Nasal Screen MRSA (PCR) Chlamy pneumoniae PCR Adenovirus (PCR) B. pertussis DNA (PCR) B.parapertussis DNA PCR Coronavirus OC43 (PCR) Coronavirus HKU1 (PCR) Coronavirus 229E (PCR) Coronavirus NL63 (PCR) Human Metapneumovir PCR Influenza A (H1) PCR Influ A (H1N1) PCR Influenza A (H3) PCR Influenza A Untype (PCR) Influenza Type B (PCR) M.pneumoniae DNA (PCR) Parainfluenza 1 (PCR) Parainfluenza 2 (PCR) Parainfluenza 3 (PCR) Parainfluenza 4 (PCR) RSV (PCR) Entero/Rhino (PCR) 04/11/18 04/11/18 04:56 07:41 WBC RBC Hgb Hct MCV MCH MCHC RDW Plt Count MPV Immature Gran % Seg Neutrophils % Lymphocytes % Monocytes % Eosinophils % Basophils % Neutrophils # Lymphocytes # Monocytes # Eosinophils # Basophils # Sample Site R Radial ABG pH 7.43 ABG pCO2 33 L ABG pO2 83 L ABG HCO3 22 ABG Total CO2 23 ABG O2 Saturation 97 ABG Base Excess -2 Respiration Rate 12 O2 Delivery Device Adult Vent Inspired O2 30.0 Tidal Volume 550 PEEP 5 Sodium Potassium Chloride Carbon Dioxide BUN Creatinine Est GFR ( Amer) Est GFR (Non-Af Amer) BUN/Creatinine Ratio Glucose POC Glucose 109 H Calculated Osmolality Lactic Acid Calcium Phosphorus Magnesium Nasal Screen MRSA (PCR) Chlamy pneumoniae PCR Adenovirus (PCR) B. pertussis DNA (PCR) B.parapertussis DNA PCR Coronavirus OC43 (PCR) Coronavirus HKU1 (PCR) Coronavirus 229E (PCR) Coronavirus NL63 (PCR) Human Metapneumovir PCR Influenza A (H1) PCR Influ A (H1N1) PCR Influenza A (H3) PCR Influenza A Untype (PCR) Influenza Type B (PCR) M.pneumoniae DNA (PCR) Parainfluenza 1 (PCR) Parainfluenza 2 (PCR) Parainfluenza 3 (PCR) Parainfluenza 4 (PCR) RSV (PCR) Entero/Rhino (PCR) - ABG Interpretation ABG results: ABG ABG pH 7.43 pH Units (7.32-7.45) 04/11/18 04:56 ABG pCO2 33 mmHg (35-45) L 04/11/18 04:56 ABG pO2 83 mmHg (85-104) L 04/11/18 04:56 ABG O2 Saturation 97 % (95-98) 04/11/18 04:56 Consult Discharge Plan - Plan Referrals: Kurtis Rivas MD [Primary Care Provider] -
--- NOTE | 2018-04-11 10:43 | Pulmonology Progress Note ---
<Dave Horton M - Last Filed: 04/11/18 13:46> Date of Encounter: 04/11/18 Objective PUL Vital signs: Last Vital Signs Temp 98.9 F 04/11/18 11:00 Pulse 89 04/11/18 13:00 Resp 18 04/11/18 13:00 BP 115/72 04/11/18 13:00 Pulse Ox 100 04/11/18 13:00 Ventilator Settings Ventilator Settings: Ventilator Settings, Last 8 Hours Ventilator Tidal Volume 550 Setting Ventilator Tidal Volume 550 Setting Ventilator Tidal Volume 550 Setting Ventilator Tidal Volume 550 Setting Ventilator Tidal Volume 550 Setting Ventilator Tidal Volume 550 Setting Ventilator Tidal Volume 550 Setting Ventilator Tidal Volume 550 Setting Ventilator Respiratory Rate 12 Setting Actual Respiratory Rate 18 Actual Respiratory Rate 17 Actual Respiratory Rate 20 Actual Respiratory Rate 16 Actual Respiratory Rate 18 Actual Respiratory Rate 17 Actual Respiratory Rate 14 Actual Respiratory Rate 14 Actual Respiratory Rate 15 Positive End Expiratory 5 Pressure Positive End Expiratory 5 Pressure Peak Inspiratory Airway 10 Pressure Peak Inspiratory Airway 15 Pressure Results - Laboratory Findings CBC and BMP: 04/11/18 03:52 04/11/18 10:49 ABG ABG pH 7.43 pH Units (7.32-7.45) 04/11/18 04:56 ABG pCO2 33 mmHg (35-45) L 04/11/18 04:56 ABG pO2 83 mmHg (85-104) L 04/11/18 04:56 ABG O2 Saturation 97 % (95-98) 04/11/18 04:56 Abnormal lab findings: Abnormal lab results RBC 3.53 M/mcL (4.19-5.50) L 04/11/18 03:52 Hgb 10.2 g/dL (12.9-16.9) L D 04/11/18 03:52 Hct 33.4 % (37.5-50.1) L 04/11/18 03:52 MCHC 30.5 g/dL (31.6-35.5) L 04/11/18 03:52 Band Neutrophils % 20.0 % (0-4) H 04/10/18 01:56 Metamyelocytes % 6.0 % (0) H 04/10/18 01:56 Myelocytes % 2.0 % (0) H 04/10/18 01:56 Neutrophils # 9.1 K/mcL (1.6-8.9) H 04/11/18 03:52 ABG pCO2 33 mmHg (35-45) L 04/11/18 04:56 ABG pO2 83 mmHg (85-104) L 04/11/18 04:56 Sodium 151 mEq/L (136-145) H 04/11/18 03:52 Chloride 122 mEq/L (98-107) H 04/11/18 03:52 Carbon Dioxide 21 mEq/L (23-29) L 04/11/18 03:52 BUN 54 mg/dL (8-23) H 04/11/18 03:52 Creatinine 1.54 mg/dL (0.70-1.30) H 04/11/18 03:52 Est GFR ( Amer) 55 (> 60) L 04/11/18 03:52 Est GFR (Non-Af Amer) 45 (> 60) L 04/11/18 03:52 BUN/Creatinine Ratio 35 (6-26) H 04/11/18 03:52 Glucose 155 mg/dL (70-105) H 04/11/18 03:52 POC Glucose 119 mg/dL (70-99) H 04/11/18 11:34 Calculated Osmolality 330 (280-300) H 04/11/18 03:52 Calcium 8.5 mg/dL (8.6-10.3) L 04/11/18 03:52 Serum Total Protein 5.4 g/dL (6.4-8.9) L 04/10/18 01:56 Albumin 3.1 g/dL (3.5-5.7) L 04/10/18 01:56 Globulin 2.3 g/dL (2.4-3.5) L 04/10/18 01:56 Nasal Screen MRSA (PCR) Positive (Negative) A 04/10/18 10:00 Urine Opiates Screen Positive ng/mL ([id number]=802) H 04/09/18 22:12 - Microbiology Findings Microbiology Findings: Microbiology, Last 48 Hours 04/10/18 13:25 Urine Culture - Final Urine,Catheterized No growth. 04/09/18 21:30 Sputum Culture - Preliminary Trachea 04/10/18 10:00 Legionella Antigen - Final Urine,Catheterized Streptococcus pneumoniae Antigen (M - Final - Clinical Findings Intake & Output: Intake & Output 04/10/18 04/11/18 04/11/18 23:59 07:59 15:59 Intake Total 1189 / 1189 1199 / 1199 800 / 800 Output Total 850 / 850 250 / 250 575 / 575 Balance 339 / 339 949 / 949 225 / 225 Weight 67 kg Consult Discharge Plan - Plan Referrals: Kurtis Rivas MD [Primary Care Provider] - - Attending Attestation I examined this patient and my medical decision-making was reviewed with the Resident Physician. I agree with the documented findings, disposition and treatment plan as described except to the extent set forth below. Patient seen and examined. Labs, radiology, chart personally reviewed. Agree with resident's history and physical, assessment, plan with following comments: [employer]: Patient does not follows commands, Pulmonary: Acceptable oxygenation and ventilation and tolerating spontaneous breathing trial, unfortunately with frequent suctioning its unsafe at this time to extubate the patient. Palliative care will meet with the family tomorrow and continue vent support at this time. Cardiovascular: stable GI: Nutrition per dietary and GI prophylaxis per routine Heme: DVT prophylaxis per routine ID: Continue antibiotics and plan to de-escalation Renal; urine out put and renal funtion reviewed Endorcine: blood glucose is monitored Lines: all lines checked and no evidence of infections Skin: skin care to prevent pressure ulcers per nursing routine care Overall prognosis is poor. <Doni Mendoza - Last Filed: 04/11/18 16:12> Date of Encounter: 04/11/18 Time of Encounter: 13:09 Assessment and Plan (1) Sepsis Current Visit: Yes Status: Acute Likely secondary to aspiration pneumonia Patient has positive MRSA screen Chest x-ray shows right lower lobe pneumonia Patient currently afebrile, non-tachycardic, nontachypneic, normotensive White blood cell count normal at 10.4 Lactic acid normal 1.0 Negative Urine culture, Legionella/strep pneumo, and respiratory Panel Patient currently on day 3 of Zosyn-vancomycin discontinued Qualifiers: Sepsis type: sepsis due to unspecified organism Qualified Code(s): A41.9 - Sepsis, unspecified organism (2) Acute respiratory failure with hypoxia Current Visit: Yes Status: Acute Likely secondary to aspiration pneumonia Patient intubated and mechanically ventilated Continue ABG (3) Encephalopathy Current Visit: Yes Status: Acute Patient appears to be 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 Ammonia level is normal Head CT negative for any acute process Documentation states that patient is completely dependent for ADLs (4) Chronic kidney disease Current Visit: Yes Status: Acute Patient creatinine 1.54 down from 2.02 yesterday Continue to monitor with repeat BMPs Qualifiers: Chronic kidney disease stage: stage 3 (moderate) Qualified Code(s): N18.3 - Chronic kidney disease, stage 3 (moderate) (5) Goals of care, counseling/discussion Current Visit: Yes Status: Acute Patient CODE STATUS currently full code Patient family meeting with palliative care and ICU staff to discuss goals of care tomorrow at 14:30 (6) DVT prophylaxis Current Visit: Yes Status: Acute 5000 units subcutaneous heparin 3 times a day Subjective Principal diagnosis: Pneumonia Interval history: The patient is a 67-year-old male with a past medical history of progressive multifocal leukoencephalopathy, hypertension, hyperlipidemia, and seizures who was found to be unresponsive and hypotensive at [facility]. Patient is intubated and mechanically ventilated not requiring sedation at this time and is unresponsive due to encephalopathy. CT scan of the head showed no acute process. CT scan of the chest was concerning for right lower lobe aspiration pneumonia. Initial lactate of 3.5-currently is normal 1.0. Patient is MRSA positive No acute events overnight, patient was examined lying in hospital bed and is unresponsive to examination. Objective PUL Vital signs: Last Vital Signs Temp 99.7 F H 04/11/18 08:29 Pulse 92 04/11/18 10:00 Resp 18 04/11/18 10:00 BP 108/66 04/11/18 10:00 Pulse Ox 100 04/11/18 10:00 General appearance: no acute distress, comatose (Patient does not respond to verbal or moderate physical stimuli) Effort: other (Patient is intubated and mechanically ventilated) Auscultation: bilateral: rhonchi Cardiovascular: regular rate and rhythm Gastrointestinal: normoactive bowel sounds, soft, non-tender (Patient does not grimace to abdominal palpation), non-distended Extremities: no edema Ventilator Settings Ventilator Settings: Ventilator Settings, Last 8 Hours Ventilator Tidal Volume 550 Setting Ventilator Tidal Volume 550 Setting Ventilator Tidal Volume 550 Setting Ventilator Tidal Volume 550 Setting Ventilator Tidal Volume 550 Setting Ventilator Tidal Volume 550 Setting Ventilator Tidal Volume 550 Setting Ventilator Tidal Volume 550 Setting Ventilator Tidal Volume 550 Setting Ventilator Tidal Volume 550 Setting Ventilator Tidal Volume 550 Setting Ventilator Respiratory Rate 12 Setting Ventilator Respiratory Rate 12 Setting Ventilator Respiratory Rate 12 Setting Ventilator Respiratory Rate 12 Setting Ventilator Respiratory Rate 12 Setting Ventilator Respiratory Rate 12 Setting Ventilator Respiratory Rate 12 Setting Actual Respiratory Rate 18 Actual Respiratory Rate 17 Actual Respiratory Rate 14 Actual Respiratory Rate 14 Actual Respiratory Rate 15 Actual Respiratory Rate 16 Actual Respiratory Rate 14 Actual Respiratory Rate 15 Actual Respiratory Rate 15 Actual Respiratory Rate 15 Positive End Expiratory 5 Pressure Positive End Expiratory 5 Pressure Positive End Expiratory 5 Pressure Positive End Expiratory 5 Pressure Positive End Expiratory 5 Pressure Positive End Expiratory 5 Pressure Positive End Expiratory 5 Pressure Peak Inspiratory Airway 15 Pressure Peak Inspiratory Airway 15 Pressure Peak Inspiratory Airway 7.5 Pressure Peak Inspiratory Airway 7.5 Pressure Peak Inspiratory Airway 7.5 Pressure Peak Inspiratory Airway 5.6 Pressure Results - Laboratory Findings CBC and BMP: 04/11/18 03:52 04/11/18 10:49 ABG ABG pH 7.43 pH Units (7.32-7.45) 04/11/18 04:56 ABG pCO2 33 mmHg (35-45) L 04/11/18 04:56 ABG pO2 83 mmHg (85-104) L 04/11/18 04:56 ABG O2 Saturation 97 % (95-98) 04/11/18 04:56 Abnormal lab findings: Abnormal lab results RBC 3.53 M/mcL (4.19-5.50) L 04/11/18 03:52 Hgb 10.2 g/dL (12.9-16.9) L D 04/11/18 03:52 Hct 33.4 % (37.5-50.1) L 04/11/18 03:52 MCHC 30.5 g/dL (31.6-35.5) L 04/11/18 03:52 Band Neutrophils % 20.0 % (0-4) H 04/10/18 01:56 Metamyelocytes % 6.0 % (0) H 04/10/18 01:56 Myelocytes % 2.0 % (0) H 04/10/18 01:56 Neutrophils # 9.1 K/mcL (1.6-8.9) H 04/11/18 03:52 ABG pCO2 33 mmHg (35-45) L 04/11/18 04:56 ABG pO2 83 mmHg (85-104) L 04/11/18 04:56 Sodium 151 mEq/L (136-145) H 04/11/18 03:52 Chloride 122 mEq/L (98-107) H 04/11/18 03:52 Carbon Dioxide 21 mEq/L (23-29) L 04/11/18 03:52 BUN 54 mg/dL (8-23) H 04/11/18 03:52 Creatinine 1.54 mg/dL (0.70-1.30) H 04/11/18 03:52 Est GFR ( Amer) 55 (> 60) L 04/11/18 03:52 Est GFR (Non-Af Amer) 45 (> 60) L 04/11/18 03:52 BUN/Creatinine Ratio 35 (6-26) H 04/11/18 03:52 Glucose 155 mg/dL (70-105) H 04/11/18 03:52 POC Glucose 109 mg/dL (70-99) H 04/11/18 07:41 Calculated Osmolality 330 (280-300) H 04/11/18 03:52 Calcium 8.5 mg/dL (8.6-10.3) L 04/11/18 03:52 Phosphorus 2.1 mg/dL (2.7-4.5) L 04/11/18 03:52 Serum Total Protein 5.4 g/dL (6.4-8.9) L 04/10/18 01:56 Albumin 3.1 g/dL (3.5-5.7) L 04/10/18 01:56 Globulin 2.3 g/dL (2.4-3.5) L 04/10/18 01:56 Nasal Screen MRSA (PCR) Positive (Negative) A 04/10/18 10:00 Urine Opiates Screen Positive ng/mL ([id number]=039) H 04/09/18 22:12 - Microbiology Findings Microbiology Findings: Microbiology, Last 48 Hours 04/09/18 21:30 Sputum Culture - Preliminary Trachea 04/10/18 10:00 Legionella Antigen - Final Urine,Catheterized Streptococcus pneumoniae Antigen (M - Final - Clinical Findings Intake & Output: Intake & Output 04/10/18 04/11/18 04/11/18 23:59 07:59 15:59 Intake Total 1189 / 1189 1199 / 1199 Output Total 850 / 850 250 / 250 325 / 325 Balance 339 / 339 949 / 949 -325 / -325 Weight 67 kg
[2018-04-11] MEDS ORDERED: Scopolamine Patch 1.5 MG PATCH.TD72 TD ONE (17:52)
[2018-04-12] MEDS: Piperacillin/Tazobactam 3.375 GM in 0.9 % Sodium Chloride Mini Bag 100 ML IVPB SCH ×2 (00:10→12:39)
[2018-04-12] MEDS: *HR* Heparin 5,000 UNIT/ML VIAL SQ SCH ×2 (00:10→12:38)
[2018-04-12] MEDS: Artificial Tears SOLN 15 ML BOTTLE BOTH EYES SCH ×2 (00:10→12:38)
[2018-04-12 04:18] LABS: VBG Ionized Calcium 1.21 mmol/L (1.15-1.35); VBG PH 7.38 pH Units (7.32-7.42)
[2018-04-12 04:57] LABS: ABG Base Excess -1 mEq/L (-2 to 3); ABG HCO3 22 mEq/L (21-27); ABG Oxygen Saturation 97 % (95-98); ABG PCO2 31 mmHg (35-45); ABG PH 7.46 pH Units (7.32-7.45); ABG PO2 87 mmHg (85-104); ABG TCO2 23 mEq/L (20-26); Blood Gas Modality ASSIST CONTROL; Blood Gas PEEP 5 cm H2O; Blood Gas Respiration Rate 12; Blood Gas VT 550 cc
[2018-04-12] MEDS: Famotidine 20 MG/2 ML VIAL IVP SCH (12:38)
[2018-04-12] MEDS: Chlorhexidine Rinse 15 ML MOUTHWASH MM SCH (12:39)
[2018-04-12] MEDS: Docusate Oral Soln 100 MG/10 ML UDC GTUBE SCH (12:39)
[2018-04-12 13:07] VITALS: BP 120/79
--- NOTE | 2018-04-12 13:31 | Pulmonology Progress Note ---
<Saravanan Reyes - Last Filed: 04/12/18 13:28> Date of Encounter: 04/12/18 Time of Encounter: 07:30 Assessment and Plan (1) Advance care planning Status: Acute Family met with palliative care today Family decided to make patient DNR-CC Patient will be extubated today, now on nasal cannula Family would like patient to have inpatient hospice, palliative care working on this (2) Sepsis Status: Acute Likely secondary to aspiration pneumonia Patient has positive MRSA screen Chest x-ray shows right lower lobe pneumonia Patient currently afebrile, non-tachycardic, nontachypneic, normotensive White blood cell count normal Lactic acid normal 1.0 Negative Urine culture, Legionella/strep pneumo, and respiratory Panel Patient currently on day 4 of Zosyn Discontinued vancomycin Family here - decided to make patient DNR-CC and would like inpatient hospice Qualifiers: Sepsis type: sepsis due to unspecified organism Qualified Code(s): A41.9 - Sepsis, unspecified organism (3) Acute respiratory failure with hypoxia Status: Acute Likely secondary to aspiration pneumonia Continue Zosyn (day 4) Patient extubated to nasal cannula today, saturating at 100% Patient does not follow commands at baseline Family wants patient to be DNR-CC with inpatient hospice (4) Encephalopathy Status: Acute Patient does not follow commands, which seems to be his baseline 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 No change in status from yesterday. Patient had some secretions. Fentanyl was resumed this AM. Patient seems to be resting comfortably. Meeting with family today. Objective PUL Vital signs: Last Vital Signs Temp 100.2 F H 04/11/18 23:50 Pulse 86 04/12/18 13:00 Resp 22 04/12/18 13:00 BP 120/79 04/12/18 13:00 Pulse Ox 100 04/12/18 13:00 General appearance: comatose (does not follow commands, close to baseline) Effort: other (vent) Auscultation: bilateral: diminished breath sounds, rhonchi Cardiovascular: regular rate and rhythm Gastrointestinal: soft, non-distended Integumentary: normal Extremities: no cyanosis, no clubbing, pulses normal unable to assess due to mental status Ventilator Settings Ventilator Settings: Ventilator Settings, Last 8 Hours Ventilator Tidal Volume 550 Setting Ventilator Tidal Volume 550 Setting Ventilator Tidal Volume 550 Setting Actual Respiratory Rate 26 Actual Respiratory Rate 24 Actual Respiratory Rate 23 Positive End Expiratory 5 Pressure Positive End Expiratory 5 Pressure Positive End Expiratory 5 Pressure Peak Inspiratory Airway 11 Pressure Peak Inspiratory Airway 11 Pressure Peak Inspiratory Airway 10 Pressure Results - Laboratory Findings CBC and BMP: 04/11/18 03:52 04/11/18 10:49 ABG ABG pH 7.46 pH Units (7.32-7.45) H 04/12/18 04:55 ABG pCO2 31 mmHg (35-45) L 04/12/18 04:55 ABG pO2 87 mmHg (85-104) 04/12/18 04:55 ABG O2 Saturation 97 % (95-98) 04/12/18 04:55 Abnormal lab findings: Abnormal lab results RBC 3.53 M/mcL (4.19-5.50) L 04/11/18 03:52 Hgb 10.2 g/dL (12.9-16.9) L D 04/11/18 03:52 Hct 33.4 % (37.5-50.1) L 04/11/18 03:52 MCHC 30.5 g/dL (31.6-35.5) L 04/11/18 03:52 Band Neutrophils % 20.0 % (0-4) H 04/10/18 01:56 Metamyelocytes % 6.0 % (0) H 04/10/18 01:56 Myelocytes % 2.0 % (0) H 04/10/18 01:56 Neutrophils # 9.1 K/mcL (1.6-8.9) H 04/11/18 03:52 ABG pH 7.46 pH Units (7.32-7.45) H 04/12/18 04:55 ABG pCO2 31 mmHg (35-45) L 04/12/18 04:55 Sodium 151 mEq/L (136-145) H 04/11/18 03:52 Chloride 122 mEq/L (98-107) H 04/11/18 03:52 Carbon Dioxide 21 mEq/L (23-29) L 04/11/18 03:52 BUN 54 mg/dL (8-23) H 04/11/18 03:52 Creatinine 1.54 mg/dL (0.70-1.30) H 04/11/18 03:52 Est GFR ( Amer) 55 (> 60) L 04/11/18 03:52 Est GFR (Non-Af Amer) 45 (> 60) L 04/11/18 03:52 BUN/Creatinine Ratio 35 (6-26) H 04/11/18 03:52 Glucose 155 mg/dL (70-105) H 04/11/18 03:52 POC Glucose 142 mg/dL (70-99) H 04/12/18 07:32 Calculated Osmolality 330 (280-300) H 04/11/18 03:52 Calcium 8.5 mg/dL (8.6-10.3) L 04/11/18 03:52 Serum Total Protein 5.4 g/dL (6.4-8.9) L 04/10/18 01:56 Albumin 3.1 g/dL (3.5-5.7) L 04/10/18 01:56 Globulin 2.3 g/dL (2.4-3.5) L 04/10/18 01:56 Nasal Screen MRSA (PCR) Positive (Negative) A 04/10/18 10:00 Urine Opiates Screen Positive ng/mL ([id number]) H 04/09/18 22:12 - Microbiology Findings Microbiology Findings: Microbiology, Last 48 Hours 04/10/18 13:25 Urine Culture - Final Urine,Catheterized No growth. 04/09/18 21:30 Sputum Culture - Preliminary Trachea 04/10/18 10:00 Legionella Antigen - Final Urine,Catheterized Streptococcus pneumoniae Antigen (M - Final - Clinical Findings Intake & Output: Intake & Output 04/11/18 04/12/18 04/12/18 23:59 07:59 15:59 Intake Total 1360 / 1360 593 / 593 Output Total 600 / 600 Balance 760 / 760 593 / 593 Weight 67.1 kg Consult Discharge Plan - Plan Instructions: Sepsis (DC), Pneumonia (DC) Referrals: Kurtis Rivas MD [Primary Care Provider] - <Dave Horton - Last Filed: 04/12/18 21:05> Objective PUL Vital signs: Last Vital Signs Temp 100.2 F H 04/11/18 23:50 Pulse 86 04/12/18 13:00 Resp 22 04/12/18 13:00 BP 120/79 04/12/18 13:00 Pulse Ox 100 04/12/18 13:55 Ventilator Settings Ventilator Settings: Ventilator Settings, Last 8 Hours Ventilator Tidal Volume 550 Setting Ventilator Tidal Volume 550 Setting Actual Respiratory Rate 26 Actual Respiratory Rate 24 Positive End Expiratory 5 Pressure Positive End Expiratory 5 Pressure Peak Inspiratory Airway 11 Pressure Peak Inspiratory Airway 11 Pressure Results - Laboratory Findings CBC and BMP: 04/11/18 03:52 04/11/18 10:49 ABG ABG pH 7.46 pH Units (7.32-7.45) H 04/12/18 04:55 ABG pCO2 31 mmHg (35-45) L 04/12/18 04:55 ABG pO2 87 mmHg (85-104) 04/12/18 04:55 ABG O2 Saturation 97 % (95-98) 04/12/18 04:55 Abnormal lab findings: Abnormal lab results RBC 3.53 M/mcL (4.19-5.50) L 04/11/18 03:52 Hgb 10.2 g/dL (12.9-16.9) L D 04/11/18 03:52 Hct 33.4 % (37.5-50.1) L 04/11/18 03:52 MCHC 30.5 g/dL (31.6-35.5) L 04/11/18 03:52 Band Neutrophils % 20.0 % (0-4) H 04/10/18 01:56 Metamyelocytes % 6.0 % (0) H 04/10/18 01:56 Myelocytes % 2.0 % (0) H 04/10/18 01:56 Neutrophils # 9.1 K/mcL (1.6-8.9) H 04/11/18 03:52 ABG pH 7.46 pH Units (7.32-7.45) H 04/12/18 04:55 ABG pCO2 31 mmHg (35-45) L 04/12/18 04:55 Sodium 151 mEq/L (136-145) H 04/11/18 03:52 Chloride 122 mEq/L (98-107) H 04/11/18 03:52 Carbon Dioxide 21 mEq/L (23-29) L 04/11/18 03:52 BUN 54 mg/dL (8-23) H 04/11/18 03:52 Creatinine 1.54 mg/dL (0.70-1.30) H 04/11/18 03:52 Est GFR ( Amer) 55 (> 60) L 04/11/18 03:52 Est GFR (Non-Af Amer) 45 (> 60) L 04/11/18 03:52 BUN/Creatinine Ratio 35 (6-26) H 04/11/18 03:52 Glucose 155 mg/dL (70-105) H 04/11/18 03:52 POC Glucose 142 mg/dL (70-99) H 04/12/18 07:32 Calculated Osmolality 330 (280-300) H 04/11/18 03:52 Calcium 8.5 mg/dL (8.6-10.3) L 04/11/18 03:52 Serum Total Protein 5.4 g/dL (6.4-8.9) L 04/10/18 01:56 Albumin 3.1 g/dL (3.5-5.7) L 04/10/18 01:56 Globulin 2.3 g/dL (2.4-3.5) L 04/10/18 01:56 Nasal Screen MRSA (PCR) Positive (Negative) A 04/10/18 10:00 Urine Opiates Screen Positive ng/mL (Djqxeh=703) H 04/09/18 22:12 - Microbiology Findings Microbiology Findings: Microbiology, Last 48 Hours 04/09/18 21:30 Sputum Culture - Final Trachea 04/10/18 13:25 Urine Culture - Final Urine,Catheterized No growth. - Clinical Findings Intake & Output: Intake & Output 04/12/18 04/12/18 04/12/18 07:59 15:59 23:59 Intake Total 593 / 593 0 / 0 Output Total 600 / 600 Balance 593 / 593 -600 / -600 - Attending Attestation I examined this patient and my medical decision-making was reviewed with the Resident Physician. I agree with the documented findings, disposition and treatment plan as described except to the extent set forth below. Patient seen and examined. Labs, radiology, chart personally reviewed. Agree with resident's history and physical, assessment, plan with following comments: MANAGER PERFORMANCE: Patient doesn't follows commands, Pulmonary: Acceptable oxygenation and ventilation, Patient tolerating SBT and when family is ready then patient will be extubated and agree with comfort care. Cardiovascular: Overall hemodynamically stable GI: Nutrition per dietary and GI prophylaxis per routine. Heme: DVT prophylaxis per routine ID: Continue antibiotics and plan to de-escalation Renal; urine out put and renal funtion reviewed. Continue free water Endorcine: blood glucose is monitored Lines: all lines checked and no evidence of infections Skin: skin care to prevent pressure ulcers per nursing routine care Patient to be transferred to palliative care.
[2018-04-12] MEDS ORDERED: *HR* LORazepam 2 MG/ML VIAL IVP PRN (13:39)
[2018-04-12] MEDS ORDERED: Scopolamine Patch 1.5 MG PATCH.TD72 TD ONE (13:41)
--- NOTE | 2018-04-12 13:57 | Palliative Progress Note ---
Date of Encounter: 04/12/18 Time of Encounter: 13:50 - Assessment and plan (1) Generalized pain Current Visit: Yes Status: Acute (2) Goals of care, counseling/discussion Current Visit: Yes Status: Acute (3) Encephalopathy Current Visit: Yes Status: Acute (4) Pneumonia Current Visit: No Status: Inactive - Time Spent With Patient Total time spent is greater than 50% in coordination of care (as documented) at patient's floor/unit and/or counseling patient: - Subjective Interval history: Patient tolerating CPAP this am. Not much change in neurological status. Possibly some response to painful stimuli per primary nurse this am. Currently on Fentanyl at 50mcg/hr. Family including son, daughter, and sister at bedside. - Constitutional Vitals: Abnormal lab results RBC 3.53 M/mcL (4.19-5.50) L 04/11/18 03:52 Hgb 10.2 g/dL (12.9-16.9) L D 04/11/18 03:52 Hct 33.4 % (37.5-50.1) L 04/11/18 03:52 MCHC 30.5 g/dL (31.6-35.5) L 04/11/18 03:52 Band Neutrophils % 20.0 % (0-4) H 04/10/18 01:56 Metamyelocytes % 6.0 % (0) H 04/10/18 01:56 Myelocytes % 2.0 % (0) H 04/10/18 01:56 Neutrophils # 9.1 K/mcL (1.6-8.9) H 04/11/18 03:52 ABG pH 7.46 pH Units (7.32-7.45) H 04/12/18 04:55 ABG pCO2 31 mmHg (35-45) L 04/12/18 04:55 Sodium 151 mEq/L (136-145) H 04/11/18 03:52 Chloride 122 mEq/L (98-107) H 04/11/18 03:52 Carbon Dioxide 21 mEq/L (23-29) L 04/11/18 03:52 BUN 54 mg/dL (8-23) H 04/11/18 03:52 Creatinine 1.54 mg/dL (0.70-1.30) H 04/11/18 03:52 Est GFR ( Amer) 55 (> 60) L 04/11/18 03:52 Est GFR (Non-Af Amer) 45 (> 60) L 04/11/18 03:52 BUN/Creatinine Ratio 35 (6-26) H 04/11/18 03:52 Glucose 155 mg/dL (70-105) H 04/11/18 03:52 POC Glucose 142 mg/dL (70-99) H 04/12/18 07:32 Calculated Osmolality 330 (280-300) H 04/11/18 03:52 Calcium 8.5 mg/dL (8.6-10.3) L 04/11/18 03:52 Serum Total Protein 5.4 g/dL (6.4-8.9) L 04/10/18 01:56 Albumin 3.1 g/dL (3.5-5.7) L 04/10/18 01:56 Globulin 2.3 g/dL (2.4-3.5) L 04/10/18 01:56 Nasal Screen MRSA (PCR) Positive (Negative) A 04/10/18 10:00 Urine Opiates Screen Positive ng/mL (Vpcnsa=454) H 04/09/18 22:12 General appearance: Present: no acute distress - Respiratory Respiratory exam: Present: decreased breath sounds, CTAB - Cardiovascular Cardiovascular exam: Present: +S1, +S2 - GI/Abdominal GI/Abdominal exam: Present: normal bowel sounds, soft - Additional comments: Valdez with light kim urine. - Extremities Exam Extremities exam: Present: normal capillary refill, normal inspection - Neurological Exam Additional comments: Patient minimally responsive, does not follow commands. Possible response to painful stimuli. - Skin Skin exam: Present: dry, pallor, warm Palliative Quality Palliative Quality: Screen for Code Status: NA (No family contact), Screen for Goals of Care: NA, Screen for Pain: NA, If Pain Regimen Started, Initiate Bowel Regimen: NA, Screen for Nausea/Vomitting: NA Code Status: 04/09/18 21:01 CODE [Resuscitation Status: Active] [RES] Routine Comment: Resuscitation Status: Full Code 04/12/18 13:23 CODE [Resuscitation Status: Active] [RES] Routine Comment: Resuscitation Status: DNR-Comfort Care - Labs CBC & Chem 7: 04/11/18 03:52 04/11/18 10:49 Labs: Laboratory Results - last 24 hr 04/11/18 04/11/18 04/11/18 15:13 19:20 23:37 Sample Site ABG pH ABG pCO2 ABG pO2 ABG HCO3 ABG Total CO2 ABG O2 Saturation ABG Base Excess Jorge Test VBG pH Respiration Rate O2 Delivery Device Blood Gas Modality Inspired O2 Tidal Volume PEEP POC Glucose 153 H 141 H 126 H Venous Ioniz Calcium 04/12/18 04/12/18 04/12/18 03:01 04:14 04:55 Sample Site R Radial ABG pH 7.46 H ABG pCO2 31 L ABG pO2 87 ABG HCO3 22 ABG Total CO2 23 ABG O2 Saturation 97 ABG Base Excess -1 Jorge Test N/A VBG pH 7.38 Respiration Rate 12 O2 Delivery Device Adult Vent Blood Gas Modality ASSIST CONTROL Inspired O2 30.0 Tidal Volume 550 PEEP 5 POC Glucose 160 H Venous Ioniz Calcium 1.21 04/12/18 07:32 Sample Site ABG pH ABG pCO2 ABG pO2 ABG HCO3 ABG Total CO2 ABG O2 Saturation ABG Base Excess Jorge Test VBG pH Respiration Rate O2 Delivery Device Blood Gas Modality Inspired O2 Tidal Volume PEEP POC Glucose 142 H Venous Ioniz Calcium - ABG Interpretation ABG results: ABG ABG pH 7.46 pH Units (7.32-7.45) H 04/12/18 04:55 ABG pCO2 31 mmHg (35-45) L 04/12/18 04:55 ABG pO2 87 mmHg (85-104) 04/12/18 04:55 ABG O2 Saturation 97 % (95-98) 04/12/18 04:55 Consult Discharge Plan - Plan Referrals: Kurtis Rivas MD [Primary Care Provider] -
--- NOTE | 2018-04-12 14:26 | Discharge Summary ---
<Saravanan Reyes - Last Filed: 04/12/18 15:49> - NOTES TO OUTPATIENT PROVIDER Notes to Outpatient Provider: Patient's baseline appears to be groans and inability to follow commands. He was made DNR-CC, and will be transitioned to inpatient hospice. Date of Encounter: 04/12/18 Time of Encounter: 08:00 - Discharge Diagnosis (1) Advance care planning Priority: Primary Status: Acute (2) Sepsis Priority: Primary Status: Acute Qualifiers: Sepsis type: sepsis due to unspecified organism Qualified Code(s): A41.9 - Sepsis, unspecified organism (3) Acute respiratory failure with hypoxia Priority: Primary Status: Acute (4) Encephalopathy Priority: Secondary Status: Acute (5) Chronic kidney disease Priority: Secondary Status: Acute Qualifiers: Chronic kidney disease stage: stage 3 (moderate) Qualified Code(s): N18.3 - Chronic kidney disease, stage 3 (moderate) (6) Lactic acidosis Priority: Secondary Status: Resolved (7) DVT prophylaxis Priority: Secondary Status: Acute - Discharge Medications Allergies/Adverse Reactions: Allergy/AdvReac Type Severity Reaction Status Date / Time No Known Allergies Allergy Verified 01/24/18 21:03 Labs on day of discharge: Labs from last 24 hours 04/12/18 04/12/18 04/12/18 07:32 04:55 04:14 Sample Site R Radial ABG pH 7.46 H ABG pCO2 31 L ABG pO2 87 ABG HCO3 22 ABG Total CO2 23 ABG O2 Saturation 97 ABG Base Excess -1 Jorge Test N/A VBG pH 7.38 Respiration Rate 12 O2 Delivery Device Adult Vent Blood Gas Modality ASSIST CONTROL Inspired O2 30.0 Tidal Volume 550 PEEP 5 POC Glucose 142 H Venous Ioniz Calcium 1.21 04/12/18 04/11/18 04/11/18 03:01 23:37 19:20 Sample Site ABG pH ABG pCO2 ABG pO2 ABG HCO3 ABG Total CO2 ABG O2 Saturation ABG Base Excess Jorge Test VBG pH Respiration Rate O2 Delivery Device Blood Gas Modality Inspired O2 Tidal Volume PEEP POC Glucose 160 H 126 H 141 H Venous Ioniz Calcium 04/11/18 15:13 Sample Site ABG pH ABG pCO2 ABG pO2 ABG HCO3 ABG Total CO2 ABG O2 Saturation ABG Base Excess Jorge Test VBG pH Respiration Rate O2 Delivery Device Blood Gas Modality Inspired O2 Tidal Volume PEEP POC Glucose 153 H Venous Ioniz Calcium - Impressions ITS Impressions KUB X-Ray 04/09/18 20:52 IMPRESSION: The enteric tube is in good position in the stomach. D/ / Ryland Dorado MD / Ryland Dorado MD Interpreting Provider: Ryland Dorado MD Chest X-Ray 04/10/18 04:00 IMPRESSION: 1. Increasing airspace disease on the right, probably pneumonia. 2. The endotracheal tube tip is 4 cm above the mark. 3. The enteric tube should be advanced 7 cm. D/ / Ryland Dorado MD / Ryland Dorado MD Interpreting Provider: Ryland Dorado MD Date of admission: 04/09/18 20:30 Primary care physician: Kurtis Rivas MD Consults: 04/09/18 20:51 Consult to Critical Care [CONS] Routine Consulting Provider: Pulm Crit Care & Sleep Laura Reason for Consult: acute respriatory failure Call Completed: Yes Consult to Nutrition [CONS] Routine Comment: Consulting Provider: NUTRITION Reason for Dietary Consult: Tube Feed Start & Manage 04/10/18 11:38 Consult to Palliative Care [CONS] Stat Comment: Consulting Provider: Palliative Care Luara Reason for Consult: Patient with aspiration pneumonia. Patient currently intubated and obtunded, likely close to baseline. Can't get a hold of daughter, who is the POA about code status. Thank you. Time Notified: 11:00 Call Completed: Yes Discharging clinician: Dave Horton Anticipated date of discharge: 04/12/18 - Patient Status Disposition: Hospice - Medical Facility Condition: Undetermined Functional capacity at discharge: bed bound Overall status at discharge: patient is progressing back to baseline - Discharge Instructions Instructions: Sepsis (DC), Pneumonia (DC) Follow Up With: Kurtis Rivas MD [Primary Care Provider] - - Diet and Activity Activity: resume usual activities as tolerated Diet: advance to your usual diet - Hospital Course Hospital course: Mr. Keller is a 67 year old male with PMHx of leukoencephalopathy, HTN, HLD, and seizures was found to be unresponsive and hypotensive at a [facility] in [place] (04/09/18). Per the notes, he has been in the nursing facility since January with the possibility of rapid decline attributed to his diagnosis of leukoencephalopathy. He is not able to follow commands at baseline and is completely dependent for all his ADLs. Patient was transferred to [facility] and intubated because he wasn't able to protect his airway. Patient was given 4L of normal saline. Blood gas showed pH of 7.41, pCO2 29, PO2 80. Patient had a leukocytosis with white count of 16.8. CT chest was concerning for RLL aspiration pneumonia. CT head was negative for any acute process. He was then transferred to [place] ICU. Patient was given Vancomycin and Zosyn for suspected pneumonia and fentanyl for sedation. Patient was put on isolation for positive MRSA nasal swab. Palliative care was consulted for assistance with code status, contacting family, and hospital course. Palliative care met with family on (04/12/18). They decided to make the patient DNR - comfort care and extubate him. He tolerated the procedure well and is currently on nasal cannula. Patient will be discharged from ICU and readmitted to inpatient hospice for temporary symptom management with fentanyl. If stable, may be able to transfer back to [facility]. - Time Spent with Patient Total time spent providing and/or coordinating discharge services: Less than 30 minutes Physical Examination Vital Signs: Vital Signs, Last 4 Hours Pulse Resp BP Pulse Ox 04/12/18 13:55 100 04/12/18 13:00 86 22 120/79 100 04/12/18 10:55 26 98 General appearance: comatose (does not respond to commands) Effort: normal Auscultation: bilateral: diminished breath sounds, rhonchi Cardiovascular: regular rate and rhythm Gastrointestinal: soft, non-distended Integumentary: normal Extremities: no cyanosis, no clubbing, pulses normal unable to assess due to mental status <Dave Horton - Last Filed: 04/12/18 16:50> Labs on day of discharge: Labs from last 24 hours 04/12/18 04/12/1804/12/18 07:32 04:55 04:14 Sample Site R Radial ABG pH 7.46 H ABG pCO2 31 L ABG pO2 87 ABG HCO3 22 ABG Total CO2 23 ABG O2 Saturation 97 ABG Base Excess -1 Jorge Test N/A VBG pH 7.38 Respiration Rate 12 O2 Delivery Device Adult Vent Blood Gas Modality ASSIST CONTROL Inspired O2 30.0 Tidal Volume 550 PEEP 5 POC Glucose 142 H Venous Ioniz Calcium 1.21 04/12/18 04/11/18 04/11/18 03:01 23:37 19:20 Sample Site ABG pH ABG pCO2 ABG pO2 ABG HCO3 ABG Total CO2 ABG O2 Saturation ABG Base Excess Jorge Test VBG pH Respiration Rate O2 Delivery Device Blood Gas Modality Inspired O2 Tidal Volume PEEP POC Glucose 160 H 126 H 141 H Venous Ioniz Calcium - Impressions ITS Impressions KUB X-Ray 04/09/18 20:52 IMPRESSION: The enteric tube is in good position in the stomach. D/ / Ryland Dorado MD / Ryland Dorado MD Interpreting Provider: Ryland Dorado MD Chest X-Ray 04/10/18 04:00 IMPRESSION: 1. Increasing airspace disease on the right, probably pneumonia. 2. The endotracheal tube tip is 4 cm above the mark. 3. The enteric tube should be advanced 7 cm. D/ / Ryland Dorado MD / Ryland Dorado MD Interpreting Provider: Ryland Dorado MD Date of admission: 04/09/18 20:30 Primary care physician: Kurtis Rivas MD Consults: 04/09/18 20:51 Consult to Critical Care [CONS] Routine Consulting Provider: Pulm Crit Care & Sleep Laura Reason for Consult: acute respriatory failure Call Completed: Yes Consult to Nutrition [CONS] Routine Comment: Consulting Provider: NUTRITION Reason for Dietary Consult: Tube Feed Start & Manage 04/10/18 11:38 Consult to Palliative Care [CONS] Stat Comment: Consulting Provider: Palliative Care Laura Reason for Consult: Patient with aspiration pneumonia. Patient currently intubated and obtunded, likely close to baseline. Can't get a hold of daughter, who is the POA about code status. Thank you. Time Notified: 11:00 Call Completed: Yes - Hospital Course Hospital course: Mr. Keller is a 67 year old male - Time Spent with Patient Total time spent providing and/or coordinating discharge services: Physical Examination Vital Signs: Vital Signs, Last 4 Hours Pulse Resp BP Pulse Ox 04/12/18 13:55 100 04/12/18 13:00 86 22 120/79 100 - Attending Attestation I examined this patient and my medical decision-making was reviewed with the Resident Physician. I agree with the documented findings, disposition and treatment plan as described except to the extent set forth below. Patient with poor prognosis and palliative care met with family and patient is comfort care now.
[2018-04-12] MEDS ORDERED: Famotidine 20 MG/2 ML VIAL IVP ONE (17:50)
[2018-04-12] MEDS ORDERED: Piperacillin/Tazobactam 3.375 GM VIAL IVPB ONE (17:50)
[2018-04-12] MEDS ORDERED: *HR* Heparin 5,000 UNIT/ML VIAL IVP ONE (17:50)
[2018-04-12] MEDS ORDERED: Chlorhexidine Rinse 15 ML MOUTHWASH PO ONE (17:50)
[2018-04-12] MEDS ORDERED: Docusate Oral Soln 100 MG/10 ML UDC PO ONE (17:50)
[2018-04-12] MEDS ORDERED: 0.9 % Sodium Chloride (Mini-Bag +) 100 ML IVBAG IVC ONE (17:50)
== END 2018-04-12 17:51 | disposition hospice, inpatient (51) | DRG 720 ==
LOC: ICNU 20:30
PROVIDERS: ADMIT Internal Medicine; ATTEND Internal Medicine

== ENCOUNTER 2018-04-12 14:25 | Inpatient (IN) ==
--- NOTE | 2018-04-12 14:47 | Palliative - Consult Note ---
Date of Encounter: 04/12/18 Time of Encounter: 14:45 - Assessment and Plan (1) Dyspnea Status: Acute Assessment and plan: Titrate Fentanyl as needed. Continue supportive low flow oxygen for comfort. Duonebs PRN. Qualifiers: Dyspnea type: unspecified Qualified Code(s): R06.00 - Dyspnea, unspecified (2) Generalized pain Status: Acute Assessment and plan: Continue Fentanyl drip at this time as he received in ICU and titrate if needed. He was recently extubated. Monitor. (3) Congestion of upper airway Status: Acute Assessment and plan: Scopolamine patch that was ordered on ICU remains present. Continue and monitor (4) Anxiety Status: Acute Assessment and plan: Lorazepam will be available every 4 hours and titrate as necessary (5) Goals of care, counseling/discussion Status: Acute Assessment and plan: Admit to general inpatient hospice today for symptom management post extubation. Was resident at [facility] prior to hospital admission. If stabilizes, may need transition to ECF. (6) Acute respiratory failure with hypoxia Status: Acute (7) Aspiration pneumonia Status: Acute Qualifiers: Laterality: right Lung location: upper lobe of lung Qualified Code(s): J69.0 - Pneumonitis due to inhalation of food and vomit (8) PML (progressive multifocal leukoencephalopathy) Status: Acute Palliative-CN HPI - Data of Consult Consult date: 04/12/18 Requesting Physician: Louisa Garcia MD - Consult Narrative History of present illness: Mr. Keller is a 67 year old male who originally transferred from [facility] with altered mental status and suspected aspiration pneumonia (RUL and RLL) He was intubated for airway protection initially. Patient has a history of Progressive Leukoencephalopathy which was diagnosed from MRI at [facility], after a history of repeated falls, increasing weakness and decreased mental status. Patient did receive IV/atb therapy/supportive ventilation/aerosols in ICU. He was hemodynamically stable and tolerating CPAP trials, however, remains minimally responsive. Initially had difficulty reaching family, but did locate his daughter Yvonne, and son Christo, as well as sister Sirisha. Their is no designated POA, so they made decisions together on his behalf. Family decided that patient would not want the aggressive care we were providing, and would likely want to be kept comfortable. He was compassionately extubated and liberated from the ventilator this afternoon. He will be discharged from hospital and admitted to general inpatient hospice for symptom management. He was found to be living in very poor condition this summer and was transferred to [facility] in early January. Patient was working at the [employer] in the [place] and retired about 2 years ago. Family states he was a "loner", walked the streets a lot, and did not have much communication with them. CC: Louisa Garcia MD - Time Spent with Patient Time: Total time spent is greater than 50% in coordination of care (as documented) at patient's floor/unit and/or counseling patient: 25 - 35 minutes Past Med Surg Social Fam HX - Past Medical History Medical history: dementia, hypertension, seizures, other (Leukoencephalopathy, lumbar stenosis) Additional medical history: Weight loss unexplained. Dementia. BPH. Periventricular Leukoencephalopathy Psychiatric history: no psych history - Past Surgical History Surgical History: no surgical history Additional surgical history: Hypokalemia, azotemia,vitamin deficiency, multiple falls, weight loss - Social History Smoking Status: Former smoker Smokeless Tobacco Status: No Alcohol use: none Drug use: none Medications and Allergies Allergy/AdvReac Type Severity Reaction Status Date / Time No Known Allergies Allergy Verified 01/24/18 21:03 ROS unobtainable: due to mental status Palliative Care-Exam - Constitutional General appearance: Present: no acute distress - Head Head Exam: Present: normal inspection, normocephalic - Eye Eye exam: Present: normal appearance, PERRL - Respiratory Additional comments: Occasional rhonchi posteriorally. No wheezing. O2 at 4L per NC - Cardiovascular Cardiovascular exam: Present: +S1, +S2 - Expanded Cardiovascular Exam Type of murmur: Present: crescendo - GI/Abdominal Exam GI/Abdominal exam: Present: normal bowel sounds, soft - Additional comments: Valdez with clear yellow urine - Extremities Exam Extremities exam: Present: normal capillary refill, normal inspection - Neurological Exam Additional comments: No response to verbal/tactile stimuli. Does not follow commands. - Skin Skin exam: Present: dry, pallor, warm Palliative Quality Palliative Quality: Screen for Code Status: Yes, Screen for Goals of Care: Yes, Screen for Pain: Yes, If Pain Regimen Started, Initiate Bowel Regimen: Yes, Screen for Nausea/Vomitting: Yes
[2018-04-12] MEDS ORDERED: *HR* LORazepam 2 MG/ML VIAL IVP PRN (14:51)
[2018-04-12] MEDS ORDERED: Bisacodyl 10 MG RECTAL SUPPOSITORY RC PRN (14:51)
[2018-04-12] MEDS ORDERED: Ipratropium/Albuterol Neb 3 ML IH PRN (14:51)
[2018-04-12] MEDS ORDERED: Scopolamine Patch 1.5 MG PATCH.TD72 TD SCH (15:00)
[2018-04-12] MEDS: Artificial Tears SOLN 15 ML BOTTLE BOTH EYES SCH (18:19)
[2018-04-12] MEDS: FentaNYL (PF) 1,000 MCG in 0.9 % Sodium Chloride 80 ML IVC SCH (18:54)
--- NOTE | 2018-04-13 09:15 | Palliative Progress Note ---
Date of Encounter: 04/13/18 Time of Encounter: 09:10 - Assessment and plan (1) Dyspnea Current Visit: No Status: Acute Assessment and plan: Utilize Fentanyl drip with boluses PRN for air hunger. Oxygen currently at 3L per NC. Has aerosols available PRN for wheezing if needed. Qualifiers: Dyspnea type: unspecified Qualified Code(s): R06.00 - Dyspnea, unspecified (2) Generalized pain Current Visit: No Status: Acute Assessment and plan: Continues with Fentanyl drip, currently at 25mcg/hr. Titrate as necessary. (3) Congestion of upper airway Current Visit: No Status: Acute Assessment and plan: Continue scopolamine patch. (4) Anxiety Current Visit: No Status: Acute (5) Goals of care, counseling/discussion Current Visit: No Status: Acute Assessment and plan: Continue GIP care for symptom management. If he survives, will need social service involved as he will need placement. Will touch base with slag worker. No family present. (6) Acute respiratory failure with hypoxia Current Visit: No Status: Acute (7) Aspiration pneumonia Current Visit: No Status: Acute Qualifiers: Laterality: right Lung location: upper lobe of lung Qualified Code(s): J69.0 - Pneumonitis due to inhalation of food and vomit (8) PML (progressive multifocal leukoencephalopathy) Current Visit: No Status: Acute - Time Spent With Patient Total time spent is greater than 50% in coordination of care (as documented) at patient's floor/unit and/or counseling patient: 25 - 35 minutes - Subjective Interval history: Patient resting quietly. Does partially open eyes when name called. Febrile with temp 100.6 this am. SaO2 90%. Oral care completed. Does grimace some when extremities moved. - Constitutional General appearance: Present: no acute distress - Respiratory Respiratory exam: Present: decreased breath sounds Additional comments: Shallow inspiratory effort - Cardiovascular Cardiovascular exam: Present: +S1, +S2, tachycardia - GI/Abdominal GI/Abdominal exam: Present: normal bowel sounds, soft - Additional comments: Valdez - yellow urine with sediment - Extremities Exam Additional comments: 1+ edema to bilateral hands and feet - Neurological Exam Additional comments: Opens eyes partially when name called and with tactile stimulation. Does not attempt to verbalized or follow commands - Skin Skin exam: Present: dry, pallor, warm Palliative Quality Palliative Quality: Screen for Code Status: Yes, Screen for Goals of Care: Yes, Screen for Pain: Yes, If Pain Regimen Started, Initiate Bowel Regimen: Yes, Screen for Nausea/Vomitting: Yes Code Status: 04/12/18 14:51 Resuscitation Status: Active [RES] Routine Comment: Resuscitation Status: DNR-Comfort Care Consult Discharge Plan - Plan Referrals: NONE,PCP [Primary Care Provider] -
[2018-04-13] MEDS: Artificial Tears SOLN 15 ML BOTTLE BOTH EYES SCH ×4 (09:20→19:44)
--- NOTE | 2018-04-13 14:56 | Pallative History & Physical ---
Date of Encounter: 04/13/18 Time of Encounter: 10:00 Assessment and Plan (1) Hospice care Current visit: Yes Status: Acute Plan per palliative care consult and progress notes Internal Medicine - H&P: HPI Chief complaint: altered mental status History of present illness: Mr. Keller is a 67 year old male who originally transferred from [facility] with altered mental status and suspected aspiration pneumonia (RUL and RLL) He was intubated for airway protection initially. Patient has a history of Progressive Leukoencephalopathy which was diagnosed from MRI at [facility], after a history of repeated falls, increasing weakness and decreased mental status. Patient did receive IV/atb therapy/supportive ventilation/aerosols in ICU. He was hemodynamically stable and tolerating CPAP trials, however, remains minimally responsive. Initially had difficulty reaching family, but did locate his daughter Yvonne, and son Christo, as well as sister Sirisha. Their is no designated POA, so they made decisions together on his behalf. Family decided that patient would not want the aggressive care we were providing, and would likely want to be kept comfortable. He was compassionately extubated and liberated from the ventilator and admitted to general inpatient hospice for symptom management. He was found to be living in very poor condition this summer and was transferred to [facility] in early January. Patient was working at the [employer] in the [place] and retired about 2 years ago. Family states he was a "loner", walked the streets a lot, and did not have much communication with them. Past Med Surg Social Fam HX - Past Medical History Medical history: dementia, hypertension, seizures, other Additional medical history: Weight loss unexplained. Dementia. BPH. Periventricular Leukoencephalopathy Psychiatric history: no psych history - Past Surgical History Surgical History: no surgical history Additional surgical history: Hypokalemia, azotemia,vitamin deficiency, multiple falls, weight loss - Social History Smoking Status: Former smoker Smokeless Tobacco Status: No Alcohol use: none Drug use: none Internal Medicine - H&P: Meds Acetaminophen [Tylenol] 650 mg PO Q6H PRN 04/13/18 [History] Cyanocobalamin (Vitamin B-12) [Vitamin B12] 1,000 mcg PO DAILY 04/13/18 [History] Docusate [Colace] 100 mg PO BID 04/13/18 [History] Hydrocodone/Acetaminophen [Hydrocodon-Acetaminophen 5-325] 1 tab PO TID 04/13/18 [History] Meclizine HCl [Verticalm] 25 mg PO DAILY 04/13/18 [History] Quetiapine Fumarate [SEROquel] 25 mg PO QAM 04/13/18 [History] Tamsulosin HCl [Flomax] 0.4 mg PO DAILY 04/13/18 [History] Allergy/AdvReac Type Severity Reaction Status Date / Time No Known Allergies Allergy Verified 01/24/18 21:03 ROS unobtainable: due to mental status Palliative Care-Exam - Constitutional Vitals: Temp Pulse Resp BP Pulse Ox 100.5 F H 104 33 133/80 90 04/13/18 07:15 04/13/18 07:15 04/13/18 07:15 04/13/18 07:15 04/13/18 09:24 General appearance: Present: no acute distress Exam: - Constitutional General appearance: Present: no acute distress - Respiratory Respiratory exam: Present: decreased breath sounds Additional comments: Shallow inspiratory effort - Cardiovascular Cardiovascular exam: Present: +S1, +S2, tachycardia - GI/Abdominal GI/Abdominal exam: Present: normal bowel sounds, soft - Additional comments: Valdez - yellow urine with sediment - Extremities Exam Additional comments: 1+ edema to bilateral hands and feet - Neurological Exam Additional comments: Opens eyes partially when name called and with tactile stimulation. Does not attempt to verbalized or follow commands - Skin Skin exam: Present: dry, pallor, warm Palliative Quality Palliative Quality: Screen for Code Status: Yes, Screen for Goals of Care: Yes, Screen for Pain: Yes, If Pain Regimen Started, Initiate Bowel Regimen: Yes, Screen for Nausea/Vomitting: Yes Code Status: 04/12/18 14:51 Resuscitation Status: Active [RES] Routine Comment: Resuscitation Status: DNR-Comfort Care
[2018-04-13] MEDS: Atropine Sulfate 1% 40 DROP/2 ML BOTTLE SL PRN ×2 (18:18→23:50)
[2018-04-14] MEDS: FentaNYL (PF) 1,000 MCG in 0.9 % Sodium Chloride 80 ML IVC SCH (06:05)
[2018-04-14] MEDS: Artificial Tears SOLN 15 ML BOTTLE BOTH EYES SCH ×4 (10:11→23:10)
--- NOTE | 2018-04-14 12:37 | Palliative Progress Note ---
Date of Encounter: 04/14/18 Time of Encounter: 10:30 - Assessment and plan (1) Goals of care, counseling/discussion Current Visit: No Status: Acute Assessment and plan: Patient continues to need hospice care for the management of dyspnea requiring daily medication adjustment. If symptoms stabilize, will need social service involved as he will need placement. [employer] social worker involved. No family present. (2) Generalized pain Current Visit: No Status: Acute Assessment and plan: Continues with Fentanyl drip, currently at 25mcg/hr. Titrate as necessary. (3) Dyspnea Current Visit: No Status: Acute Assessment and plan: continue Fentanyl drip with boluses PRN for air hunger. Oxygen currently at 3L per NC. Has aerosols available PRN for wheezing if needed. Qualifiers: Dyspnea type: unspecified Qualified Code(s): R06.00 - Dyspnea, unspecified (4) Anxiety Current Visit: No Status: Acute Assessment and plan: Appears calm at this time. Ativan prn (5) Congestion of upper airway Current Visit: No Status: Acute Assessment and plan: Pt continue to have thick secretions Scopolamine patch in place. (6) PML (progressive multifocal leukoencephalopathy) Current Visit: No Status: Acute - Time Spent With Patient Total time spent is greater than 50% in coordination of care (as documented) at patient's floor/unit and/or counseling patient: less than 15 minutes - Subjective Interval history: Patient resting quietly. Does partially open eyes when name called, and became tachypneic with touch. Appears actively dying, no PO intake. - Constitutional Exam: Vitals reviewed General appearance: appears comfortable Neck: supple, no lymphadenopathy, no JVD Chest: bilateral: decreased breath sounds, shallow breathing Cardiovascular: regular rate and rhythm Gastrointestinal: soft, non-tender, non-distended Extremities: no cyanosis, no edema, no clubbing Musculoskeletal: no deformities Neurologic: open eyes transiently to touch, does not follow commands. Psych: mood appropriate, affect normal Palliative Quality Palliative Quality: Screen for Code Status: Yes, Screen for Goals of Care: Yes, Screen for Pain: Yes, If Pain Regimen Started, Initiate Bowel Regimen: Yes, Screen for Nausea/Vomitting: Yes Code Status: 04/12/18 14:51 Resuscitation Status: Active [RES] Routine Comment: Resuscitation Status: DNR-Comfort Care Consult Discharge Plan - Plan Referrals: NONE,PCP [Primary Care Provider] -
[2018-04-14] MEDS ORDERED: Scopolamine Patch 1.5 MG PATCH.TD72 TD SCH (18:00)
[2018-04-14] MEDS: Acetaminophen 650 MG RECTAL SUPP RC PRN (22:41)
[2018-04-15] MEDS: Artificial Tears SOLN 15 ML BOTTLE BOTH EYES SCH ×4 (10:43→22:19)
--- NOTE | 2018-04-15 13:55 | Palliative Progress Note ---
Date of Encounter: 04/15/18 Time of Encounter: 09:00 - Assessment and plan (1) Goals of care, counseling/discussion Current Visit: No Status: Acute Assessment and plan: Patient continues to need hospice care for the management of dyspnea requiring daily medication adjustment. If symptoms stabilize, will need social service involved as he will need placement. script worker involved. No family present. (2) Generalized pain Current Visit: No Status: Acute Assessment and plan: Continues with Fentanyl drip, currently at 25mcg/hr. Titrate as necessary. (3) Dyspnea Current Visit: No Status: Acute Assessment and plan: continue Fentanyl drip with boluses PRN for air hunger. Oxygen currently at 3L per NC. Has aerosols available PRN for wheezing if needed. Qualifiers: Dyspnea type: unspecified Qualified Code(s): R06.00 - Dyspnea, unspecified (4) Anxiety Current Visit: No Status: Acute Assessment and plan: Appears calm at this time. Ativan prn (5) Congestion of upper airway Current Visit: No Status: Acute Assessment and plan: Pt continue to have thick secretions Scopolamine patch in place. Atropine prn (6) PML (progressive multifocal leukoencephalopathy) Current Visit: No Status: Acute - Time Spent With Patient Total time spent is greater than 50% in coordination of care (as documented) at patient's floor/unit and/or counseling patient: 25 - 35 minutes - Subjective Interval history: Patient resting quietly. looks more active today, very shallow breathing. - Constitutional Exam: General appearance: appears comfortable Neck: supple, no lymphadenopathy, no JVD Chest: bilateral: decreased breath sounds, shallow breathing Cardiovascular: regular rate and rhythm Gastrointestinal: soft, non-tender, non-distended Extremities: no cyanosis, no edema, no clubbing Musculoskeletal: no deformities Neurologic: open eyes transiently to touch, does not follow commands. Psych: mood appropriate, affect normal Palliative Quality Palliative Quality: Screen for Code Status: Yes, Screen for Goals of Care: Yes, Screen for Pain: Yes, If Pain Regimen Started, Initiate Bowel Regimen: Yes, Screen for Nausea/Vomitting: Yes Code Status: 04/12/18 14:51 Resuscitation Status: Active [RES] Routine Comment: Resuscitation Status: DNR-Comfort Care Consult Discharge Plan - Plan Referrals: NONE,PCP [Primary Care Provider] -
[2018-04-15] MEDS: FentaNYL (PF) 1,000 MCG in 0.9 % Sodium Chloride 80 ML IVC SCH ×2 (14:52→22:17)
[2018-04-16] MEDS: Acetaminophen 650 MG RECTAL SUPP RC PRN (04:35)
--- NOTE | 2018-04-16 08:45 | Palliative Progress Note ---
Date of Encounter: 04/16/18 Time of Encounter: 08:40 - Assessment and plan (1) Dyspnea Current Visit: No Status: Acute Assessment and plan: His work of breathing appears increased this am and he is tachypneic. Will increase Fentanyl drip and see if this eases his respiratory distress. Qualifiers: Dyspnea type: unspecified Qualified Code(s): R06.00 - Dyspnea, unspecified (2) Generalized pain Current Visit: No Status: Acute Assessment and plan: Continue Fentanyl for discomfort as well as dyspnea. (3) Congestion of upper airway Current Visit: No Status: Acute Assessment and plan: Secretions are well managed at this point. Continue Scopolamine patch, Atropine if needed. (4) Anxiety Current Visit: No Status: Acute Assessment and plan: Has Lorazepam available if needed, but has not required. (5) Goals of care, counseling/discussion Current Visit: No Status: Acute Assessment and plan: Initially was hoping to transition Fentanyl drip to patch, however, this am appears to have increased tachypnea. Will increase Fentanyl drip this am and re-evaluate. Continue GIP care. (6) Acute respiratory failure with hypoxia Current Visit: No Status: Acute (7) Aspiration pneumonia Current Visit: No Status: Acute Qualifiers: Laterality: right Lung location: upper lobe of lung Qualified Code(s): J69.0 - Pneumonitis due to inhalation of food and vomit (8) PML (progressive multifocal leukoencephalopathy) Current Visit: No Status: Acute - Time Spent With Patient Total time spent is greater than 50% in coordination of care (as documented) at patient's floor/unit and/or counseling patient: - Subjective Interval history: Patient unresponsive. Tachypneic with RR 36. Blood pressure decreased this am. No family at bedside. - Constitutional General appearance: Present: mild distress - Respiratory Respiratory exam: Present: CTAB, tachypnea Additional comments: Shallow breathing - Cardiovascular Cardiovascular exam: Present: +S1, +S2, tachycardia - GI/Abdominal GI/Abdominal exam: Present: hypoactive bowel sounds, soft - Additional comments: Small amount dk yellow urine with sediment - Neurological Exam Additional comments: Unresponsive to tactile and verbal stimuli - Skin Skin exam: Present: dry, pallor, warm Palliative Quality Palliative Quality: Screen for Code Status: Yes, Screen for Goals of Care: Yes, Screen for Pain: Yes, If Pain Regimen Started, Initiate Bowel Regimen: Yes, Screen for Nausea/Vomitting: Yes Code Status: 04/12/18 14:51 Resuscitation Status: Active [RES] Routine Comment: Resuscitation Status: DNR-Comfort Care Consult Discharge Plan - Plan Referrals: NONE,PCP [Primary Care Provider] -
[2018-04-16] MEDS: Artificial Tears SOLN 15 ML BOTTLE BOTH EYES SCH ×4 (13:40→21:44)
[2018-04-16] MEDS: FentaNYL (PF) 1,000 MCG in 0.9 % Sodium Chloride 80 ML IVC SCH (19:53)
[2018-04-17 04:19] VITALS: BP 58/30
[2018-04-17] MEDS: Artificial Tears SOLN 15 ML BOTTLE BOTH EYES SCH (08:32)
--- NOTE | 2018-04-17 09:23 | Death Note ---
Discharge Sum: Summary - Date and Time Date of admission: 04/12/18 17:47 Date of : 04/17/18 Time of : 07:27 - Summary Details: Mr. Keller is a 67 year old male who originally transferred from [facility] with altered mental status and suspected aspiration pneumonia (RUL and RLL) He was intubated for airway protection initially. Patient has a history of Progressive Leukoencephalopathy which was diagnosed from MRI at [facility], after a history of repeated falls, increasing weakness and decreased mental status. Patient did receive IV/atb therapy/supportive ventilation/aerosols in ICU. Meetings were held with son/daughter, and patients sister regarding goals of care and they transitioned to DNR-Comfort care. Patient was transitioned to general inpatient hospice for symptom management. Yesterday, patient's Fentanyl drip required increasing throughout the day for respiratory distress. He this am comfortably. Family was called and presented at bedside. - Additional Data Confirmation of as documented by pronouncing clinician: no pulse, no respirations, no heart sounds Attending/PCP notified?: Yes Attending physician: Louisa Garcia MD Was code activated?: No Autopsy requested?: No Hospice patient?: Yes Discharge Sum: Diag - PCOD Probable Cause of : Respiratory arrest Discharge Sum: Prov - Provider Primary care physician: PCP NONE Admitting clinician: Louisa Garcia Consults: 04/12/18 14:51 Consult to Palliative Care [CONS] Routine Comment: Consulting Provider: Palliative Care Laura Reason for Consult: GIP Call Completed: No
== END 2018-04-17 07:27 | disposition expired | DRG 177 ==
LOC: 2ANU 17:47
PROVIDERS: ADMIT Internal Medicine Hospice and Palliative Medicine; ATTEND Internal Medicine Hospice and Palliative Medicine